=== PATIENT | female | born 1940 | race Caucasian/White ===

== ENCOUNTER 2017-10-22 17:17 | Emergency (ER) | payer OTHER ==
[2017-10-22 18:25] LABS: Absolute Lymphocytes (CBC) 1.5 K/uL (0.7-4.9); Absolute Monocytes 0.4 K/uL (0.1-1.3); Absolute Neutrophil 4.3 K/uL (1.8-8.0); Basophils % 0.6 % (0-1.3); Eosinophils % 0.7 % (0-4.4); Hematocrit 31.5 % (36.0-45.0); Lymphocytes % 23.5 % (15.3-44.8); MCH 28.6 pg (27.0-35.0); MCV 86.5 fL (80-100); MPV 7.1 fL (7.6-11.3); Monocytes % 7.1 % (3.3-12.3); RBC Red Blood Cell Count 3.64 M/uL (3.86-4.86)
--- NOTE | 2017-10-22 18:27 | RAD REPORT ---
EXAM DESCRIPTION: CT - Head C Spine Mpr Wo Con - 10/22/2017 6:06 pm CLINICAL HISTORY: Head and neck injury status post fall. Head and neck pain COMPARISON: None. TECHNIQUE: Computed axial tomography of the head and cervical spine was obtained. Sagittal and coronal reconstruction was performed. All CT scans are performed using dose optimization technique as appropriate and may include automated exposure control or mA/KV adjustment according to patient size. FINDINGS: An intracranial bleed is not seen. An extra-axial fluid collection is not noted. Moderate low-density areas within periventricular, deep and subcortical white matter likely represent ischemic changes secondary to small vessel disease. Cerebral atrophy is present. Partial opacification ethmoid sinus is present A cervical fracture is not visualized. No dislocation is noted. Disc osteophyte complex is involved s everal levels resulting in central spinal stenosis. Mild anterior subluxation of C3 on C4 probably is chronic IMPRESSION: No acute intracranial abnormality is seen. A cervical fracture is not visualized. If the patient continues to have symptoms to suggest intracra nial /spinal cord pathology then MRI would be recommended
[2017-10-22 18:36] LABS: BUN Blood Urea Nitrogen 17 mg/dL (6-20); Bicarbonate 31 mEq/L (21-31); Glucose Level 96 mg/dL (65-120); Sodium Level 138 mEq/L (135-145)
--- NOTE | 2017-10-22 19:06 | ER ---
Nurse's Notes [facility] Name: Maggie Durant Age: 77 yrs Sex: Female : 1940 Arrival Date: 10/22/2017 Time: 17:22 Bed 26 Private MD: Diagnosis: Other slipping, tripping and stumbling and falls Presentation: 10/22 17:28 Presenting complaint: EMS states: pt slipped twice today, once out of her chair and tl3 secondly against a wall, severe dementia, no abrasions or lacerations noted. Transition of care: patient was received from another setting of care (long-term care [facility]), [facility]. Onset of symptoms was October 22, 2017. Care prior to arrival: None. 17:28 Method Of Arrival: EMS: [facility] tl3 17:28 Acuity: LUIS ALBERTO 4 tl3 17:28 Acuity: LUIS ALBERTO 3 tl3 Triage Assessment: 17:28 General: Appears comfortable, slender, well groomed, well developed, well nourished, tl3 Behavior is cooperative. Pain: Unable to use pain scale. Patient is disoriented. Does not appear to understand pain scale. EENT: No signs and/or symptoms were reported regarding the EENT system. Neuro: Level of Consciousness is awake, alert. Cardiovascular: Heart tones S1 S2 present. Respiratory: Airway is patent Trachea midline Respiratory effort is even, unlabored, Breath sounds are clear bilaterally. GI: No signs and/or symptoms were reported involving the gastrointestinal system. : No signs and/or symptoms were reported regarding the genitourinary system. Derm: No deficits noted. Musculoskeletal: No deficits noted. Historical: - Home Meds: 18:05 tramadol 50 mg Oral tab every 8 hours [Active]; Ativan 1 mg Oral tab 1 tab 3 times per tl3 day for Anxiety [Active]; ducusate 100mg 100 mg daily [Active]; Iron CR Oral [Active]; omeprazole 20 mg Oral cpDR 1 cap once daily [Active]; - PMHx: 18:05 Alzheimers; tl3 - Immunization history:: Adult Immunizations up to date. - Social history:: Smoking status: Patient/guardian denies using tobacco, never smoked. Screenin:05 Abuse screen: Denies threats or abuse. Nutritional screening: No deficits noted. tl3 Tuberculosis screening: No symptoms or risk factors identified. Fall Risk Fall in past 12 months (25 points). Assessment: 18:01 Reassessment: No changes from previously documented assessment. Patient and/or family tl3 updated on plan of care and expected duration. Pain level reassessed. Patient is alert, oriented x 3, equal unlabored respirations, skin warm/dry/pink. General: Appears in no apparent distress. comfortable, well groomed, well developed, well nourished, Behavior is calm, cooperative. Pain: Unable to use pain scale. Does not appear to understand pain scale. Neuro: Level of Consciousness is awake, alert, obeys commands. Cardiovascular: Heart tones S1 S2 present Capillary refill < 3 seconds in bilateral fingers. Respiratory: Breath sounds are clear bilaterally. GI: No signs and/or symptoms were reported involving the gastrointestinal system. : No signs and/or symptoms were reported regarding the genitourinary system. EENT: No signs and/or symptoms were reported regarding the EENT system. Derm: No signs and/or symptoms reported regarding the dermatologic system. Musculoskeletal: No signs and/or symptoms reported regarding the musculoskeletal system. 18:16 Reassessment: Patient appears in no apparent distress at this time. No changes from tl3 previously documented assessment. Patient and/or family updated on plan of care and expected duration. Pain level reassessed. Patient is alert, oriented x 3, equal unlabored respirations, skin warm/dry/pink. pt returned from CT. 19:25 Reassessment: [place] [facility] that pt required transportation, [facility] spoke with Ruth who said she would call as soon as transportation was available. 20:12 Reassessment: states that he will take pt back [place] [facility]. Ruth at [address] called and informed of change in transportation. Vital Signs: 17:28 BP 129 / 88; Pulse 66; Resp 16; Temp 97.7(A); Pulse Ox 100% on R/A; tl3 18:21 BP 140 / 61; Pulse 81; Resp 18; Pulse Ox 97% on R/A; tl3 19:02 BP 147 / 78; Pulse 64; Resp 18; Pulse Ox 98% on R/A; tl3 ED Course: 17:22 Patient arrived in ED. iw 17:28 Shanika Salcedo, RN is Primary Nurse. tl3 17:30 Triage completed. tl3 17:30 Bentley Cedillo PA is PHCP. cp 17:30 Bentley Rhodes MD is Attending Physician. cp 17:[address] via stretcher. jg1 18:05 Patient has correct armband on for positive identification. Bed in low position. Call tl3 light in reach. Side rails up X2. Adult w/ patient. Warm blanket given. 18:05 No provider procedures requiring assistance completed. tl3 18:07 CT Head C Spine In Process Unspecified. EDMS 18:10 CT completed. Patient moved back from [place]. vm2 18:14 EKG done, by audiovisual technician. reviewed by Bentley BRANDON. at1 18:21 Initial lab(s) drawn, by oh, sent to lab. Inserted saline lock: 22 gauge in right dh3 forearm, using aseptic technique. Blood collected. 19:34 IV discontinued, intact, bleeding controlled, No redness/swelling at site. Pressure tl3 dressing applied. 20:14 Arm band placed on left wrist. tl3 Administered Medications: No medications were administered Outcome: 19:05 Discharge ordered by MD. cp 20:12 Discharged to home ambulatory. tl3 20:12 Condition: good 20:12 Discharge instructions given to family, Instructed on discharge instructions. 20:14 Patient left the ED. tl3 Signatures: Dispatcher [employer] EDMS Ellie Pantoja j Katelyn Cooper, RN RN Janiya shi, employment supervisor EKG Tat1 Bentley Cedillo PA PA cp McGuire, Victoria 2 Rupa Oquendo 3 Shanika Salcedo RN RN tl3
--- NOTE | 2017-10-22 19:06 | EDPHYS ---
Physician Documentation [facility] Name: Maggie Durant Age: 77 yrs Sex: Female : 1940 Arrival Date: 10/22/2017 Time: 17:22 Bed 26 Private MD: ED Physician Bentley Rhodes HPI: 10/22 17:48 This 77 yrs old Female presents to ER via EMS with complaints of fall. cp 17:48 Details of fall: The patient fell from an upright position, while walking, from seated cp position, out of a chair. Onset: The symptoms/episode began/occurred today. Associated injuries: The patient sustained no obvious injury. Unable to obtain HPI due to baseline dementia. Patient with baseline dementia. 17:48 Patient is resident of [facility] and is referred to ED after sustaining multiple fall cp today. One fall while seated in chair and another while walking near wall in which patient struck side of head on way to ground. No reported LOC. Historical: - Home Meds: 18:05 tramadol 50 mg Oral tab every 8 hours [Active]; Ativan 1 mg Oral tab 1 tab 3 times per tl3 day for Anxiety [Active]; ducusate 100mg 100 mg daily [Active]; Iron CR Oral [Active]; omeprazole 20 mg Oral cpDR 1 cap once daily [Active]; - PMHx: 18:05 Alzheimers; tl3 - Immunization history:: Adult Immunizations up to date. - Social history:: Smoking status: Patient/guardian denies using tobacco, never smoked. ROS: 17:55 Constitutional: Negative for fever. cp 17:55 Unable to obtain ROS due to baseline dementia. cp Exam: 17:58 Head/Face: Normocephalic, atraumatic. cp 17:58 Constitutional: The patient appears in no acute distress, alert, awake, non-diaphoretic, non-toxic, well developed, frail. 17:58 Eyes: Periorbital structures: appear normal, Pupils: equal, round, and reactive to cp light and accomodation, Conjunctiva: normal, no exudate, no injection, Sclera: no appreciated abnormality, Lids and lashes: appear normal, bilaterally. 17:58 ENT: External ear(s): are unremarkable, Ear canal(s): are normal, clear, TM's: bulging, is not appreciated, bilaterally, dullness, bilaterally, erythema, is not appreciated, bilaterally, Nose: is normal, Mouth: Lips: moist, Oral mucosa: moist, Posterior pharynx: is normal, airway is patent. 17:58 Neck: C-spine: vertebral tenderness, is not appreciated, crepitus, is not appreciated, ROM/movement: is normal, is supple, without pain, no range of motions limitations, no nuchal rigidity. 17:58 Chest/axilla: Inspection: normal, Palpation: is normal, no crepitus, no tenderness. 17:58 Cardiovascular: Rate: normal, Rhythm: regular, Pulses: Pulses are 2+ in right radial artery and left radial artery. 17:58 Respiratory: the patient does not display signs of respiratory distress, Respirations: normal, no use of accessory muscles, no retractions, no splinting, no tachypnea, labored breathing, is not present, Breath sounds: are clear throughout, no decreased breath sounds, no stridor, no wheezing. 17:58 Abdomen/GI: Inspection: abdomen appears normal, Bowel sounds: active, all quadrants, Palpation: abdomen is soft and non-tender, in all quadrants, rebound tenderness, is not appreciated, voluntary guarding, is not appreciated, involuntary guarding, is not appreciated. 17:58 Back: CVA tenderness, is absent, vertebral tenderness, is not appreciated. 17:58 Skin: cellulitis, is not appreciated, injury, is not appreciated, no rash present. 17:58 Neuro: Orientation: no acute changes, per family, Mentation: no acute changes, per family, able to follow commands, Motor: moves all fours. 18:00 ECG was reviewed by the Attending Physician. cp Vital Signs: 17:28 BP 129 / 88; Pulse 66; Resp 16; Temp 97.7(A); Pulse Ox 100% on R/A; tl3 18:21 BP 140 / 61; Pulse 81; Resp 18; Pulse Ox 97% on R/A; tl3 19:02 BP 147 / 78; Pulse 64; Resp 18; Pulse Ox 98% on R/A; tl3 MDM: 17:30 Patient medically screened. cp 18:00 Differential diagnosis: abrasion, closed head injury, contusion, fracture, laceration, cp multiple trauma, abuse. 19:00 Data reviewed: vital signs, nurses notes, lab test result(s), radiologic studies, CT cp scan, VSS. CT negative for acute findings, and as a result, I will discharge patient. 10/22 17:44 Order name: CBC with Diff; Complete Time: 18:51 10/22 18:51 Interpretation: Normal except: RBC 3.64; HGB 10.4; HCT 31.5; MCV 86.5; PLT 460; MPV 7.1. 10/22 17:44 Order name: BMP; Complete Time: 18:51 10/22 18:52 Interpretation: Reviewed. 10/22 17:44 Order name: CT Head C Spine; Complete Time: 18:51 10/22 18:51 Interpretation: Reviewed report. 10/22 17:44 Order name: EKG; Complete Time: 17:45 10/22 17:44 Order name: EKG - Nurse/Tech; Complete Time: 18:01 cp EC:00 Rate is 70 beats/min. Rhythm is regular. ME interval is normal. QRS interval is cp prolonged at 128 msec. QT interval is normal. No ST changes noted. Interpreted by me. Reviewed by me. Administered Medications: No medications were administered Disposition: 21:00 Chart complete. 10/23 07:39 Co-signature as Attending Physician, Bentley Rhodes MD I agree with the assessment and [facility] plan of care. Disposition: 10/22/17 19:05 Discharged to Home. Impression: Other slipping, tripping and stumbling and falls. - Condition is Stable. - Discharge Instructions: Fall Prevention and Home Safety. - Medication Reconciliation Form, Thank You Letter, Antibiotic Education, Prescription Opioid Use form. - Follow up: Emergency Department; When: As needed; Reason: Worsening of condition. - Problem is new. - Symptoms are unchanged. Addendum: 11/03/2017 08:33 Addendum: additional DX: Person with feared health complaint in whom no diagnosis is c p made. Signatures: Dispatcher [employer] Bentley Mendoza MD MD cha Page, Corey, PA PA cp Lowrey, Tammy, RN RN tl3
[2017-10-22 20:20] VITALS: TEMP 97.7
[2017-10-22 20:22] VITALS: BP 147/78; O2SAT 98
--- NOTE | 2017-10-23 10:09 | EKG ---
Test Date: 2017-10-22 Test Time: 17:53:06 Labor Relations Consultant: CON MEASUREMENT RESULTS: Intervals: Rate: 70 MT: 158 QRSD: 128 QT: 426 QTc: 460 [place]: P: 66 MT: 158 QRS: -72 T: 23 INTERPRETIVE STATEMENTS: Sinus rhythm with marked sinus arrhythmia Right bundle branch block Left anterior fascicular block Bifascicular block Abnormal ECG Compared to ECG 04/19/2015 08:12:39 Left anterior fascicular block now present Bifascicular block now present Atrial premature complex(es) no longer present Left-axis deviation no longer present Electronically Signed On 10-23-17 10:07:50 CDT by Jere Peralta
== END 2017-10-22 20:14 | disposition home or self-care (01) ==
LOC: ER 17:17
DX: Z71.1 Person with feared health complaint in whom no diagnosis is made (principal); W01.0XXA Fall on same level from slipping, tripping and stumbling without subsequent striking against object, initial encounter; Y93.01 Activity, walking, marching and hiking; Y92.129 Unspecified place in nursing home as the place of occurrence of the external cause; G30.9 Alzheimer's disease, unspecified; F02.80 Dementia in other diseases classified elsewhere, unspecified severity, without behavioral disturbance, psychotic disturbance, mood disturbance, and anxiety
CPT/HCPCS: 36415; 70450; 72125; 80048; 85025; 93005; 99284

== ENCOUNTER 2017-12-25 16:33 | Emergency (ER) | payer OTHER ==
--- NOTE | 2017-12-25 17:49 | RAD REPORT ---
EXAM DESCRIPTION: RAD - Wrist Right 3 View - 12/25/2017 5:41 pm CLINICAL HISTORY: Right wrist pain status post injury FINDINGS: No fracture or dislocation is seen. The bones are osteoporotic. Chondrocalcinosis is seen. If the patient continues have symptoms to suggest an occult fracture then MRI would be recommended
[2017-12-25 18:10] LABS: Absolute Lymphocytes (CBC) 1.6 K/uL (0.7-4.9); Absolute Monocytes 0.7 K/uL (0.1-1.3); Absolute Neutrophil 3.9 K/uL (1.8-8.0); Basophils % 0.7 % (0-1.3); Eosinophils % 0.3 % (0-4.4); Hematocrit 34.6 % (36.0-45.0); Lymphocytes % 25.2 % (15.3-44.8); MCH 27.2 pg (27.0-35.0); MCV 84.4 fL (80-100); MPV 7.4 fL (7.6-11.3); Monocytes % 11.6 % (3.3-12.3)
[2017-12-25 18:34] LABS: Bicarbonate 24 mEq/L (21-31); Glucose Level 139 mg/dL (65-120); Potassium 3.7 mEq/L (3.6-5.0); Sodium Level 135 mEq/L (135-145)
[2017-12-25 18:38] LABS: BUN Blood Urea Nitrogen 10 mg/dL (6-20); Uric Acid 2.9 mg/dL (2.6-8.0)
--- NOTE | 2017-12-25 18:48 | EDPHYS ---
Physician Documentation [facility] Name: Maggie Durant Age: 77 yrs Sex: Female : 1940 Arrival Date: 12/25/2017 Time: 16:38 Bed 5 Private MD: MADDIE LARSEN ED Physician Victor Hugo Stubbs HPI: 12/25 18:08 This 77 yrs old Female presents to ER via Ambulatory with complaints of Hand gs Swelling, Ankle Swelling. 18:08 The patient or guardian reports pain, a rash, erythematous. The complaints affect the. gs Onset: The symptoms/episode began/occurred yesterday. Modifying factors: The symptoms are alleviated by nothing, the symptoms are aggravated by nothing. Associated signs and symptoms: Pertinent negatives: fever, nausea. Unable to obtain HPI due to baseline dementia. Historical: - Allergies: 16:48 No Known Allergies; ch - Home Meds: 16:48 None [Active]; ch - PMHx: 16:48 Alzheimers; possible hyperglycemia; ch - PSHx: 16:48 Hysterectomy; disc repair in lower back; L hip and L ankle; ch - Immunization history:: Adult Immunizations unknown. - Social history:: Smoking status: Patient/guardian denies using tobacco. - Ebola Screening: : Patient negative for fever greater than or equal to 101.5 degrees Fahrenheit, and additional compatible Ebola Virus Disease symptoms Patient denies exposure to infectious person Patient denies travel to an Ebola-affected area in the 21 days before illness onset No symptoms or risks identified at this time. ROS: 18:08 Unable to obtain ROS due to baseline dementia. gs Exam: 18:08 Head/Face: Normocephalic, atraumatic. Eyes: Pupils equal round and reactive to light, gs extra-ocular motions intact. Lids and lashes normal. Conjunctiva and sclera are non-icteric and not injected. Cornea within normal limits. Periorbital areas with no swelling, redness, or edema. ENT: Nares patent. No nasal discharge, no septal abnormalities noted. Tympanic membranes are normal and external auditory canals are clear. Oropharynx with no redness, swelling, or masses, exudates, or evidence of obstruction, uvula midline. Mucous membranes moist. Neck: Trachea midline, no thyromegaly or masses palpated, and no cervical lymphadenopathy. Supple, full range of motion without nuchal rigidity, or vertebral point tenderness. No Meningismus. Chest/axilla: Normal chest wall appearance and motion. Nontender with no deformity. No lesions are appreciated. Cardiovascular: Regular rate and rhythm with a normal S1 and S2. No gallops, murmurs, or rubs. Normal PMI, no JVD. No pulse deficits. Respiratory: Lungs have equal breath sounds bilaterally, clear to auscultation and percussion. No rales, rhonchi or wheezes noted. No increased work of breathing, no retractions or nasal flaring. Abdomen/GI: Soft, non-tender, with normal bowel sounds. No distension or tympany. No guarding or rebound. No evidence of tenderness throughout. Back: No spinal tenderness. No costovertebral tenderness. Full range of motion. Neuro: Awake and alert, GCS 15, oriented to person, place, time, and situation. Cranial nerves II-XII grossly intact. Motor strength 5/5 in all extremities. Sensory grossly intact. Cerebellar exam normal. Normal gait. 18:08 Constitutional: The patient appears alert, awake. 18:08 Musculoskeletal/extremity: ROM: limited passive range of motion due to pain, Circulation is intact in all extremities. Pulses: are normal with no appreciated deficits, Sensation intact. Joints: the right wrist displays no effusion, mild tender.. 18:08 Skin: cellulitis, that is mild, on the right wrist. Vital Signs: 16:48 BP 152 / 84; Pulse 76; Resp 14; Temp 99.9; Pulse Ox 98% on R/A; Weight 46.27 kg; Height ch 5 ft. 7 in. (170.18 cm); Pain 0/10; 18:30 BP 142 / 77; Pulse 72; Resp 14; Temp 99.; Pulse Ox 99% on R/A; Pain 0/10; sg 16:48 Body Mass Index 15.98 (46.27 kg, 170.18 cm) MDM: 17:19 Patient medically screened. 18:47 Differential diagnosis: tendonitis, cellulitis. Data reviewed: vital signs, nurses gs notes, and as a result, I will discharge patient. 12/25 17:21 Order name: CBC with Diff; Complete Time: 18:27 12/25 17:21 Order name: Basic Metabolic Panel; Complete Time: 18:46 12/25 17:21 Order name: Wrist Right 3 View XRAY; Complete Time: 17:52 12/25 17:21 Order name: Uric Acid; Complete Time: 18:46 Administered Medications: No medications were administered Disposition: 12/25/17 18:47 Discharged to Home. Impression: Cellulitis of right upper limb. - Condition is Stable. - Discharge Instructions: Cellulitis. - Prescriptions for Keflex 500 mg Oral Capsule - take 1 capsule by ORAL route every 6 hours for 10 days; 40 capsule. - Medication Reconciliation Form, Thank You Letter, Antibiotic Education, Prescription Opioid Use form. - Follow up: Private Physician; When: 2 - 3 days; Reason: Re-evaluation by your physician. Signatures: Dispatcher [employer] EDKiesha Ely RN RN Steffen Almaraz RN RN Victor Hugo Ochoa MD MD gs Corrections: (The following items were deleted from the chart) 19:08 18:47 12/25/2017 18:47 Discharged to Home. Impression: Cellulitis of right upper limb. ao Condition is Stable. Forms are Medication Reconciliation Form, Thank You Letter, Antibiotic Education, Prescription Opioid Use. Follow up: Private Physician; When: 2 - 3 days; Reason: Re-evaluation by your physician.
--- NOTE | 2017-12-25 18:48 | ER ---
Nurse's Notes [facility] Name: Maggie Durant Age: 77 yrs Sex: Female : 1940 Arrival Date: 12/25/2017 Time: 16:38 Bed 5 Private MD: MADDIE LARSEN Diagnosis: Cellulitis of right upper limb Presentation: 12/25 16:45 Presenting complaint: states: pt fell september, had her L hip and L ankle ch removed. the past week her feet have been swelling, and today her R wrist is swollen. Transition of care: patient was not received from another setting of care. Onset of symptoms was December 25, 2017. Risk Assessment: Do you want to hurt yourself or someone else? Other: pt has dementia and cannot understand question. Initial Sepsis Screen: Does the patient meet any 2 criteria? No. Patient's initial sepsis screen is negative. Does the patient have a suspected source of infection? No. Patient's initial sepsis screen is negative. Care prior to arrival: None. 16:45 Method Of Arrival: Ambulatory 16:45 Acuity: LUIS ALBERTO 3 ch Triage Assessment: 16:48 General: Appears in no apparent distress. uncomfortable, Behavior is calm, cooperative, ch appropriate for age. Pain: Unable to use pain scale. Does not appear to understand pain scale. Historical: - Allergies: 16:48 No Known Allergies; ch - Home Meds: 16:48 None [Active]; ch - PMHx: 16:48 Alzheimers; possible hyperglycemia; ch - PSHx: 16:48 Hysterectomy; disc repair in lower back; L hip and L ankle; ch - Immunization history:: Adult Immunizations unknown. - Social history:: Smoking status: Patient/guardian denies using tobacco. - Ebola Screening: : Patient negative for fever greater than or equal to 101.5 degrees Fahrenheit, and additional compatible Ebola Virus Disease symptoms Patient denies exposure to infectious person Patient denies travel to an Ebola-affected area in the 21 days before illness onset No symptoms or risks identified at this time. Screenin:10 Abuse screen: Denies threats or abuse. Denies injuries from another. Nutritional sg screening: No deficits noted. Tuberculosis screening: No symptoms or risk factors identified. Never had TB. Fall Risk None identified. Assessment: 17:10 General: Appears in no apparent distress. comfortable, well groomed, well developed, sg well nourished, Behavior is calm, cooperative, appropriate for age. Pain: Complains of pain in right wrist Pain does not radiate. Neuro: Level of Consciousness is awake, alert, obeys commands, Oriented to person, place, time, situation, Slitter Processed Film are equal bilaterally Moves all extremities. Gait is steady, Speech is normal, Facial symmetry appears normal. Cardiovascular: Heart tones S1 S2 present Capillary refill is brisk in bilateral fingers Patient's skin is warm and dry. Chest pain is denied. Respiratory: Airway is patent Respiratory effort is even, unlabored, Respiratory pattern is regular, symmetrical, Breath sounds are clear. GI: No deficits noted. : No deficits noted. EENT: No deficits noted. Derm: Skin is pink, warm \T\ dry. Musculoskeletal: Circulation, motion, and sensation intact. Range of motion: intact in all extremities. Vital Signs: 16:48 BP 152 / 84; Pulse 76; Resp 14; Temp 99.9; Pulse Ox 98% on R/A; Weight 46.27 kg; Height ch 5 ft. 7 in. (170.18 cm); Pain 0/10; 18:30 BP 142 / 77; Pulse 72; Resp 14; Temp 99.; Pulse Ox 99% on R/A; Pain 0/10; sg 16:48 Body Mass Index 15.98 (46.27 kg, 170.18 cm) ED Course: 16:38 Patient arrived in ED. sb2 16:39 MADDIE LARSEN is Private Physician. sb2 16:46 Triage completed. 16:48 Arm band placed on left wrist. Patient placed in an exam room, on a stretcher. 16:51 Victor Hugo Stubbs MD is Attending Physician. 17:00 Patient did not have IV access during this emergency room visit. sg 17:01 Ricardo Kruger, RN is Primary Nurse. sg 17:10 No provider procedures requiring assistance completed. sg 17:37 X-ray completed. Portable x-ray completed in exam room. Patient tolerated procedure ml well. 17:38 Wrist Right 3 View XRAY In Process Unspecified. EDMS 18:10 Initial lab(s) drawn, by sleep lab technician, sent to lab. sg 19:00 Patient has correct armband on for positive identification. Bed in low position. Call sg light in reach. Side rails up X2. Pulse ox on. NIBP on. Cleaned of incontinence. Administered Medications: No medications were administered Outcome: 18:47 Discharge ordered by . marty 19:00 Discharged to home ambulatory, with family. ao 19:00 Condition: good 19:00 Discharge instructions given to patient, Instructed on discharge instructions, follow up and referral plans. medication usage, safety practices, Demonstrated understanding of instructions, follow-up care, medications, Prescriptions given X 1. 19:08 Patient left the ED. ao Signatures: Dispatcher [employer] EDKiesha Ely, RN Ricardo Bourne ch, RN RN sg Lopez, Melissa ml Ortiz, Alex, RN RN ao Starr, Gregory, MD MD gs Billeau, Sheri sb2
== END 2017-12-25 19:08 | disposition home or self-care (01) ==
LOC: ER 16:33
DX: L03.113 Cellulitis of right upper limb (principal); G30.9 Alzheimer's disease, unspecified; F02.80 Dementia in other diseases classified elsewhere, unspecified severity, without behavioral disturbance, psychotic disturbance, mood disturbance, and anxiety
CPT/HCPCS: 36415; 80048; 84550; 85025; 99284

== ENCOUNTER 2020-07-26 13:58 | Inpatient (IN) | payer OTHER ==
--- OUTSIDE RECORDS SUMMARY | 2020-07-26 14:00 | XMS REPORT | Continuity of Care Document ---
:1940 Author Organization [facility] t Address [address] [place] [id number] Care Team Providers Name Role Phone Unavailable Unavailable Unavailable Problems Condition Condition Condition Status Onset Resolution Last Treating Co mments Source Name Details Category Date Date Treatment Clinician Date Pain of Pain of Problem Active [facility] hand [facility] Prediabete Prediabete Problem Active [facility] Pain in Pain in Problem Active [facility] right hand right hand Jesusita kes - [facility] Trigger Trigger Problem Active [facility] finger of finger of Luke s - both hands both hands Me [facility]ia l [facility] Alzheimer Alzheimer Problem Active [facility] disease disease [facility]ics Hyperchole Hyperchole Problem Active [facility] sterolemia sterolemia Jesusita [facility] Vitamin D Vitamin D Problem Active [facility] deficiency deficiency Jesusita kes [facility] Atrial Atrial Problem Active [facility] fibrillati fibrillati Jesusita kes - on on [facility] Depression Depression Problem Active [facility] screening screening [facility] Medicare Medicare Diagnosis Active [facility] annual annual [facility] visit, visit, l subsequent subsequent [facility] Allergies, Adverse Reactions, Alerts This patient has no known allergies or adverse reactions. Medications Ordered Filled Start Stop Current Ordering Indication Dosage Frequency Signature Comments Components Source Medication Medication Date Date Medication? Clinician (SIG) Name Name Robbinalonso Robbinalonso Yes Nena [facility] [address] [facility] Vitamin D3 Vitamin D3 Yes Nena [address] [facility] Millender [facility] Namenda XR Namenda XR Yes Nena [address] [facility] Millender [facility] Nexium Nexium Yes Nena 1 capsule [facility] Sucralfate Sucralfate Yes Nena [address] [facility] Millender at bedtime Luke s - on an Memoria empty l stomach Outpati before ent meals Clinics Bentyl Bentyl Yes Nena [address] [facility] Millender [facility] Donepezil Donepezil Yes Nena [address] [facility] HCl HCl Millender at bedtime [facility] Procedures This patient has no known procedures. Encounters Start End Encounter Admission Attending Care Care Encounter Source Date/Time Date/Time Type Type Clinicians Facility Department ID 2019-03-09 2019-03-09 Outpatient Charles Craft [id number] [facility] 14:15:00 14:15:00 [facility] Outpat[facility] ent Clinics 2018-11-12 2018-11-12 Outpatient Charles Craft [id number] 14:40:00 14:40:00 [facility] Out[facility] Clinics Results This patient has no known results.
[2020-07-26 14:45] LABS: Absolute Lymphocytes (CBC) 0.9 K/uL (0.7-4.9); Basophils % 0.6 % (0-1.3); Hematocrit 38.8 % (36.0-45.0); Lymphocytes % 16.6 % (15.3-44.8); MPV 10.3 fL (7.6-11.3)
[2020-07-26 14:46] LABS: Protime INR 1.28
[2020-07-26] MEDS ORDERED: NA CHLORIDE 0.9% 500 ML ONE (15:05)
[2020-07-26 15:11] LABS: Albumin 3.5 g/dL (3.4-5.0); Bilirubin Direct 0.2 mg/dL (0-0.2); Bilirubin Total 0.7 mg/dL (0.2-1.0); Magnesium 2.6 mg/dL (1.8-2.4); Potassium 3.8 mmol/L (3.5-5.1); Protein, Total 7.4 g/dL (6.4-8.2); Troponin (Emerg Dept Use Only) 0.1 ng/mL (0.0-0.045)
--- NOTE | 2020-07-26 15:28 | RAD REPORT ---
EXAM DESCRIPTION: CT - CTHCSPWOC - 07/26/2020 3:15 pm CLINICAL HISTORY: Trauma, head and neck injury. fall, AMS COMPARISON: Head C Spine Mpr Wo Con dated 10/22/2017 TECHNIQUE: Axial 5 mm thick images of the head were obtained. Axial 2 mm thick images of the cervical spine were obtained with sagittal and coronal reconstruction images generated and reviewed. All CT scans are performed using dose optimization technique as appropriate and may include automated exposure control or mA/KV adjustment according to patient size. FINDINGS: CT HEAD WITHOUT CONTRAST: No acute hemorrhage, hydrocephalus or extra-axial collection is identified.Advanced generalized brain atrophy is present with advanced periventricular and deep white matter chronic microvascular ischemi c changes.No areas of brain edema or midline shift. The paranasal sinuses and mastoids are clear.The calvarium is intact. CT CERVICAL SPINE WITHOUT CONTRAST: No fracture or subluxation.Prominent multilevel spondylosis of the cervical spine is present with mul tiple calcified disc herniation seen, largest noted at C3-4.No prevertebral soft tissues swelling is identified. IMPRESSION: No acute intracranial or cervical spine findings. Moderately severe multilevel cervical degenerative spondylosis.
[2020-07-26 15:32] LABS: Urine Bacteria LOADED /HPF (<20); Urine RBC <5 /HPF (NONE SEEN)
--- NOTE | 2020-07-26 16:07 | RAD REPORT ---
EXAM DESCRIPTION: RAD - Chest Single View - 07/26/2020 3:45 pm CLINICAL HISTORY: AMS Chest pain. COMPARISON: CHEST SINGLE VIEW dated 11/01/2014; CHEST PA AND LAT 2 VIEW dated 02/24/2012; CHEST SINGLE VIEW dated 08/26/2010; CHEST SINGLE VIEW dated 08/25/2010 FINDINGS: Portable technique limits examination quality. The lungs are grossly clear. The heart is normal in size. No displaced fractures. IMPRESSION: No acute intrathoracic process suspected.
--- NOTE | 2020-07-26 16:13 | RAD REPORT ---
EXAM DESCRIPTION: RAD - Pelvis - 07/26/2020 3:45 pm CLINICAL HISTORY: fall Fall, pain COMPARISON: Hip Bilateral With Pelvis dated 09/08/2017 FINDINGS: Diffuse osteopenia is seen. Left total hip arthroplasty is present. No acute fracture is e vident. Moderate levoscoliosis of the lower lumbar spine.
[2020-07-26] MEDS ORDERED: ASPIRIN 600 MG/SUPP PR ONE (16:28)
[2020-07-26] MEDS ORDERED: ENOXAPARIN 40 MG/0.4 ML SQ ONE (16:29)
[2020-07-26] MEDS ORDERED: NACHLORIDE 0.45% 1,000 ML IV ONE (16:29)
[2020-07-26] MEDS ORDERED: CEFTRIAXONE/SWI 1gm 1 GM/10 ML SYR ONE (16:29)
--- NOTE | 2020-07-26 16:39 | P.HP ---
Certification for Inpatient Patient admitted to: Inpatient With expected LOS: >2 Midnights Practitioner: I am a practitioner with admitting privileges, knowledge of patient current condition, hospital course, and medical plan of care. Services: Services provided to patient in accordance with Admission requirements found in Title 42 Section 412.3 of the Code of Federal Regulations Patient History Date of Service: 07/26/20 Reason for admission: hypernatremia, AMS History of Present Illness: 79yo F, PMH: Alzheimer dementia who was brought to the ED due to altered mental status/lethargy/slurring of speech. is at bedside. He states that approximately 1 week ago patient fell at home, and fell again 3 days ago hitting her head on their dresser. He states he spoke with the their neurologist recommended going to the ER. Has been delayed this. Patient has been more sleepy the last 3 days, sleeping most of day, but waking for meals and to use the bathroom. He reports good appetite, but poor hydration - which is chronic for her. She is typically confused/demented, most times not even oriented to self. In the ED, CT head: negative, CBC unremarkable, hypernatremia (170), hyperchloremia (140),, creatinine at 1.1, glucose 240, negative pro calcitonin, and UA (catheterization) with loaded with bacteria reports patient does not take any medications at home. Allergies No Known Drug Allergies Allergy (Verified 09/08/17 08:52) Unknown No Known Allergies Allergy (Uncoded 12/25/17 19:12) Unknown Home Medications: Docusate [Colace Cap*] 200 mg PO DAILY PRN #30 cap 09/11/17 Enoxaparin Sodium [Lovenox 40 MG INJ*] 40 mg SQ DAILY 5 PM #30 syr 09/11/17 Ensure Enlive 237 ml PO BID #60 can 09/11/17 Iron/FA/Vit B-Com W/C [Hemocyte Plus*] 1 tab PO DAILY WITH BREAKFAST #30 tab 09/11/17 Pantoprazole [Protonix Tab*] 40 mg PO DAILY #30 tab 09/11/17 Tramadol HCl [Ultram] 50 mg PO BID PRN #20 tablet 09/11/17 - Past Medical/Surgical History Diabetic: No -: alzheimers -: GERD -: UTI -: hysterectomy -: back surgery -: nodule removal from back - Family History Father -: Diabetes, Kidney disease Mother Notes: dementia Brother -: Diabetes, Cancer Notes: alzheimers Sister -: Stroke - Social History Smoking Status: Never smoker Alcohol use: No CD- Drugs: No Caffeine use: Yes Review of Systems is unable to be obtained Physical Examination - Physical Exam General: Demented, Delirious HEENT: Sclerae nonicteric Respiratory: Clear to auscultation bilaterally Cardiovascular: No edema, Regular rate/rhythm Gastrointestinal: Soft and benign, No tenderness Integumentary: No significant lesion Neurological: Other (minimally responsive, opens eyes to loud voice, does not follow commands. She was more agitated earlier), Dementia Urinary: Keys catheter - Studies Laboratory Data (last 24 hrs) 07/26/20 14:25: PT 15.0 H, INR 1.28 07/26/20 14:25: WBC 5.6, Hgb 12.3, Hct 38.8, Plt Count 306 07/26/20 14:25: Sodium 170 H*, Potassium 3.8, BUN 53 H, Creatinine 1.10, Glucose 249 H, Magnesium 2.6 H, Total Bilirubin 0.7, AST 20, ALT 37, Alkaline Phosphatase 195 H Assessment and Plan - Advance Directives Does patient have a Living Will: No Does patient have a Durable POA for Healthcare: No Physician Review Additional Text: AMS Fall Hypernatremia, hyperchloremia UTI Alzheimer dementia AMS/Fall possibly due to UTI vs hypernatremia CT head / c-spine negative. CXR negative, hip x-ray negative UA grossly positive for UTI, start Rocephin, f/u urine culture, pt does not appear septic, vitals ok, afebrile, no leukocytosis Nephrology consulted - advised 1/2 NS @ 100ml/hr, repeat BMP tonight, and adjust from there hypernatremia likely due to hypovolemia troponin elevated, however reports no CAD disease, and denies patient ever complaining of chest pain, possibly due to hyovolemia, will obtain echo. briefly reviewed with cardiology, pt is DNR and given comorbidities would not be a good candidate for intervention if she was having OH, continue lovenox VTE prophylaxis doubtful patient can remain still at this time for MRI VTE: lovenox Dispo: hospitalization >2 days, anticipate dc home Time Spent Managing Pts Care (In Minutes): 60
[2020-07-26] MEDS ORDERED: LORazepam 2 MG/ML VIAL ONE (17:20)
--- NOTE | 2020-07-26 17:24 | EDPHYS ---
Physician Documentation [facility] Name: Maggie Durant Age: 79 yrs Sex: Female : 1940 Arrival Date: 07/26/2020 Time: 14:02 Bed 26 Private MD: ED Physician Melo Martinez HPI: 07/26 14:13 This 79 yrs old Female presents to ER via EMS with complaints of Altered cp Mental Status. 14:13 The patient presents with slurring of words. Onset: The symptoms/episode began/occurred cp 3 day(s) ago. Possible causes: fall from bed 3 days ago. 14:15 Current symptoms: In the emergency department the patient's symptoms are unchanged from cp the initial presentation, despite home interventions. Patient's baseline: Neuro: alert but confused, Motor: no deficits, Ambulation: walks with assist only, uses walker, Speech: normal. Historical: - Allergies: 14:04 No Known Drug Allergies; ll1 - PMHx: 14:04 Alzheimers; possible hyperglycemia; ll1 - PSHx: 14:04 Hysterectomy; disc repair in lower back; ll1 - Immunization history:: Flu vaccine is up to date. - Social history:: Smoking status: Patient denies any tobacco usage or history of. ROS: 14:15 Constitutional: Negative for fever. cp 14:15 Neuro: Positive for altered mental status, speech changes. 14:15 Unable to obtain ROS due to altered mental status, baseline dementia. Exam: 14:16 Head/Face: Normocephalic, atraumatic. cp 14:16 Constitutional: The patient appears in no acute distress, alert, awake, non-diaphoretic, non-toxic, well developed, frail. 14:16 Eyes: Pupils: equal, round, and reactive to light and accomodation, Conjunctiva: normal, no exudate, no injection, Sclera: no appreciated abnormality, Lids and lashes: appear normal, bilaterally. 14:16 ENT: External ear(s): are unremarkable, Nose: is normal, Posterior pharynx: Airway: no evidence of obstruction, patent. 14:16 Neck: C-spine: vertebral tenderness, is not appreciated, crepitus, is not appreciated. 14:16 Chest/axilla: Inspection: normal, Palpation: is normal, no crepitus, no tenderness. 14:16 Cardiovascular: Rate: normal, Rhythm: regular, Edema: is not appreciated, JVD: is not appreciated. 14:16 Respiratory: the patient does not display signs of respiratory distress, Respirations: normal, no use of accessory muscles, no retractions, labored breathing, is not present, Breath sounds: are clear throughout, no decreased breath sounds. 14:16 Abdomen/GI: Inspection: abdomen appears normal, Palpation: abdomen is soft and non-tender, in all quadrants. 14:16 Neuro: Orientation: Not oriented to person, place, time, Mentation: unable to follow commands, Motor: moves all fours. 15:35 ECG was reviewed by the Attending Physician. Vital Signs: 14:02 BP 140 / 72; Pulse 88; Resp 22; dm5 14:03 BP 131 / 101; Pulse 95; Resp 18; Temp 97.4(R); Pain 0/10; dm5 14:17 Pulse 123; Pulse Ox 95% on R/A; jp3 16:11 Weight 40.82 kg (R); dm5 16:30 BP 136 / 86; Pulse 88; Resp 20; Pulse Ox 93% on R/A; dm5 16:51 BP 131 / 88; Pulse 95; Resp 29; Pulse Ox 100% on R/A; dm5 MDM: 14:13 Patient medically screened. 16:10 Data reviewed: vital signs, nurses notes, lab test result(s), EKG, radiologic studies, cp CT scan, plain films, and as a result, I will admit patient. 16:10 Test interpretation: by ED physician or midlevel provider: ECG. Physician consultation: santana Rhodes MD was called at 16:05, was contacted at 16:05, regarding admission, to the telemetry unit. patient's condition. 07/26 14:12 Order name: Basic Metabolic Panel cp 07/26 14:12 Order name: CBC with Diff; Complete Time: 14:52 cp 07/26 14:12 Order name: LFT's cp 07/26 14:12 Order name: Magnesium cp 07/26 14:12 Order name: NT PRO-BNP cp 07/26 14:12 Order name: PT-INR; Complete Time: 14:52 cp 07/26 14:12 Order name: Troponin (emerg Dept Use Only); Complete Time: 15:31 cp 07/26 15:31 Interpretation: Abnormal: TROPED 0.10. cp 07/26 14:12 Order name: Lactate; Complete Time: 15:31 cp 07/26 14:12 Order name: Procalcitonin; Complete Time: 15:31 cp 07/26 14:12 Order name: Blood Culture Adult (2) cp 07/26 14:12 Order name: Urine Microscopic Only; Complete Time: 15:39 cp 07/26 14:13 Order name: Basic Metabolic Panel; Complete Time: 15:31 EDMS 07/26 15:31 Interpretation: Normal except: NA 170; CL 140; GLUC 249; BUN 53; GFR 48. cp 07/26 14:13 Order name: Liver (Hepatic) Function; Complete Time: 15:31 EDMS 07/26 15:35 Interpretation: Normal except: ALK 195; GLOB 3.9; A/G 0.9. cp 07/26 14:13 Order name: Magnesium; Complete Time: 15:31 EDMS 07/26 15:35 Interpretation: Abnormal: MG 2.6. cp 07/26 14:12 Order name: XRAY Chest (1 view); Complete Time: 17:47 cp 07/26 14:12 Order name: EKG; Complete Time: 14:13 cp 07/26 14:12 Order name: XRAY Pelvis; Complete Time: 17:47 cp 07/26 14:12 Order name: CT Head C Spine; Complete Time: 15:31 cp 07/26 14:13 Order name: NT PRO-BNP; Complete Time: 15:31 EDMS 07/26 15:04 Order name: Urine Dipstick--Ancillary (enter results) bd 07/26 15:34 Order name: Urine Culture EDIL 07/26 17:12 Order name: COVID-19 dm5 07/26 17:27 Order name: CORONAVIRUS EDIL 07/26 18:14 Order name: SARS-COV-2 RT PCR EDIL 07/26 14:12 Order name: Cardiac monitoring; Complete Time: 14:38 cp 07/26 14:12 Order name: EKG - Nurse/Tech; Complete Time: 15:33 cp 07/26 14:12 Order name: IV Saline Lock; Complete Time: 14:38 cp 07/26 14:12 Order name: Labs collected and sent; Complete Time: 14:38 cp 07/26 14:12 Order name: O2 Per Protocol; Complete Time: 14:38 cp 07/26 14:12 Order name: O2 Sat Monitoring; Complete Time: 14:38 cp 07/26 14:12 Order name: Cath; Complete Time: 15:06 cp 07/26 14:12 Order name: Urine Dipstick-Ancillary (obtain specimen); Complete Time: 15:05 cp 07/26 16:41 Order name: CONS Physician Consult EDMS EC:35 Rate is 96 beats/min. Rhythm is irregular. PA interval is normal. QRS interval is cp prolonged at 104 msec. QT interval is normal. Interpreted by me. Reviewed by me. Administered Medications: 16:08 Not Given (other intervention ordered): NS 0.9% 500 ml IV at 500 ml/hr continuous dm5 16:20 Drug: Rocephin 1 grams Route: IV; Rate: calculated rate; Site: right antecubital; dm5 16:23 Drug: NS 0.45 % 1000 ml Route: IV; Rate: 100 ml/hr; Site: right antecubital; dm5 16:25 Drug: Aspirin Suppository 300 mg Route: PA; dm5 16:42 Drug: Lovenox 1 mg/kg Route: Sub-Q; Site: left upper arm; dm5 17:00 Drug: Ativan 0.5 mg Route: IVP; Site: right antecubital; dm5 18:37 Follow up: Response: No adverse reaction; Anxiety unchanged dm5 Disposition: 20:00 Chart complete. 07/27 07:06 Co-signature as Attending Physician, Melo Martinez MD I agree with the assessment and kdr plan of care. Disposition: 07/26/20 17:23 Hospitalization ordered by Myke Rhodes for Inpatient Admission. Preliminary diagnosis are Hyperosmolality and hypernatremia, Altered mental status, unspecified, Urinary tract infection, site not specified. - Bed requested for Telemetry/MedSurg (Inpatient). - Status is Inpatient Admission. sg - Condition is Fair. - Problem is new. - Symptoms have improved. Signatures: Dispatcher [employer] EDMS Fany Lincoln Deana, RN RN dm5 Ricardo Kruger RN RN sg Rittger, Kevin, MD MD [facility] Elvis Blackwell, [employer] S[employer] EQUIPMENT TECHNICIAN-C [employer]IATION SAFETY EQUIPMENT TECHNICIAN-Cla1 Bentley Cedillo PA PA cp Pippa Rosado, RN RN ll1 Corrections: (The following items were deleted from the chart) 07/26 17:59 17:23 Hospitalization Ordered by Myke Rhodes MD for Inpatient Admission. Preliminary bd diagnosis is Hyperosmolality and hypernatremia; Altered mental status, unspecified; Urinary tract infection, site not specified. Bed requested for Telemetry/MedSurg (Inpatient). Status is Inpatient Admission. Condition is Fair. Problem is new. Symptoms have improved. cp 19:58 17:59 07/26/2020 17:23 Hospitalization Ordered by Myke Rhodes MD for Inpatient sg Admission. Preliminary diagnosis is Hyperosmolality and hypernatremia; Altered mental status, unspecified; Urinary tract infection, site not specified. Bed requested for Telemetry/MedSurg (Inpatient). Status is Inpatient Admission. Condition is Fair. Problem is new. Symptoms have improved. bd
--- NOTE | 2020-07-26 17:24 | ER ---
Nurse's Notes [facility] Name: Maggie Durant Age: 79 yrs Sex: Female : 1940 Arrival Date: 07/26/2020 Time: 14:02 Bed 26 Private MD: Diagnosis: Hyperosmolality and hypernatremia;Altered mental status, unspecified;Urinary tract infection, site not specified Presentation: 07/26 14:03 Chief complaint: Patient states: AMS, babbling since Friday. + weakness, not ll1 eating/drinking well. Coronavirus screen: Client denies travel out of the [place] in the last 14 days. At this time, the client does not indicate any symptoms associated with coronavirus-19. Ebola Screen: Patient denies travel to an Ebola-affected area in the 21 days before illness onset. Initial Sepsis Screen: Does the patient meet any 2 criteria? Altered Mental Status. HR > 90 bpm. Does the patient have a suspected source of infection? No. Patient's initial sepsis screen is negative. Risk Assessment: Do you want to hurt yourself or someone else? Unable to obtain. Onset of symptoms was July 23, 2020. 14:03 Method Of Arrival: EMS: [facility] ll1 14:03 Acuity: LUIS ALBERTO 2 ll1 14:05 Chief complaint: EMS states: A fib with RVR rate 120, fingerstick 309. IV 20 G R AC, IV ll1 fluids started. Historical: - Allergies: 14:04 No Known Drug Allergies; ll1 - PMHx: 14:04 Alzheimers; possible hyperglycemia; ll1 - PSHx: 14:04 Hysterectomy; disc repair in lower back; ll1 - Immunization history:: Flu vaccine is up to date. - Social history:: Smoking status: Patient denies any tobacco usage or history of. Assessment: 18:25 Reassessment: Attempted to give report. Keyanna stated that the patient has not been dm5 assigned and should come up after shift change. Vital Signs: 14:02 BP 140 / 72; Pulse 88; Resp 22; dm5 14:03 BP 131 / 101; Pulse 95; Resp 18; Temp 97.4(R); Pain 0/10; dm5 14:17 Pulse 123; Pulse Ox 95% on R/A; jp3 16:11 Weight 40.82 kg (R); dm5 16:30 BP 136 / 86; Pulse 88; Resp 20; Pulse Ox 93% on R/A; dm5 16:51 BP 131 / 88; Pulse 95; Resp 29; Pulse Ox 100% on R/A; dm5 ED Course: 14:00 Maintain EMS IV. Dressing intact. Good blood return noted. Site clean \T\ dry. Gauge \T\ rosalinda 3 site: 18 Gauge in RAC. Patient maintains SpO2 saturation greater than 95% on room air. 14:02 Patient arrived in ED. ll1 14:04 Triage completed. ll1 14:04 Arm band placed on Patient placed in an exam room, on a stretcher. ll1 14:10 Bentley Cedillo PA is PHCP. cp 14:10 Melo Martinez MD is Attending Physician. cp 14:14 Stefanie Marion, STEVO is Primary Nurse. dm5 14:20 First set of blood cultures drawn by me. jp3 14:25 Initial lab(s) drawn, by me, sent to lab. jp3 14:30 Second set of blood cultures drawn by me. jp3 14:50 Urine collected: Keys catheter specimen, clear, faisal colored, Amount Returned: 130mL. jp3 Keys cath inserted, using sterile technique, 16 Fr., by me, balloon inflated, returned faisal urine. Patient tolerated well. 15:15 CT Head C Spine In Process Unspecified. EDMS 15:32 EKG done, by ED staff, reviewed by Bentley BRANDON X-ray(s) taken. jp3 15:45 XRAY Chest (1 view) In Process Unspecified. EDMS 15:45 XRAY Pelvis In Process Unspecified. EDMS 16:48 Urine Culture Sent. dm5 17:22 Myke Rhodes MD is Hospitalizing Provider. cp Administered Medications: 16:08 Not Given (other intervention ordered): NS 0.9% 500 ml IV at 500 ml/hr continuous dm5 16:20 Drug: Rocephin 1 grams Route: IV; Rate: calculated rate; Site: right antecubital; dm5 16:23 Drug: NS 0.45 % 1000 ml Route: IV; Rate: 100 ml/hr; Site: right antecubital; dm5 16:25 Drug: Aspirin Suppository 300 mg Route: KS; dm5 16:42 Drug: Lovenox 1 mg/kg Route: Sub-Q; Site: left upper arm; dm5 17:00 Drug: Ativan 0.5 mg Route: IVP; Site: right antecubital; dm5 18:37 Follow up: Response: No adverse reaction; Anxiety unchanged dm5 Outcome: 17:23 Decision to Hospitalize by Provider. cp 19:08 Admitted to Med/surg accompanied by tech, via stretcher, with chart, Report called to gordon Elliott RN 19:08 Condition: unchanged 19:08 Discharge instructions given to family, Instructed on the need for admit. 19:58 Patient left the ED. sg Signatures: Dispatcher [employer] EDStefanie Sellers RN RN dm5 Ricardo Kruger RN RN sg Bentley Cedillo PA PA cp Pisarski, Jacob 3 Pippa Rosado RN RN ll1 Corrections: (The following items were deleted from the chart) 14:55 14:03 BP 131 / 101; Pulse 95bpm; Resp 18bpm; Temp 94.7F Axillary; Pain 0/10; ll1 dm5 16:48 16:47 Lovenox 1 mg/kg Sub-Q in left upper arm dm5 dm5
[2020-07-26 20:14] LABS: Urine Blood TRACE (NEG); Urine Glucose 2+ (NEG); Urine Protein 1+ (NEG); Urine Specific Gravity 1.025 (1.005-1.030)
[2020-07-26 20:16] LABS: Potassium 3.5 mmol/L (3.5-5.1)
[2020-07-26] MEDS: INSULIN -REGULAR HUMAN 50 UNIT/0.5 ML ML SQ SCH (20:30)
[2020-07-26] MEDS: NACHLORIDE 0.45% 1,000 ML IV SCH (21:00)
[2020-07-26] MEDS ORDERED: KCL 20 MEQ/100 mL IVPB 0 MEQ/0 ML BAG IV ONE (21:53)
[2020-07-26] MEDS ORDERED: KCL 10 MEQ/100 ML IVPB 10 MEQ/100 ML BAG IV SCH (22:00)
[2020-07-26 22:43] VITALS: BMI 14.9
[2020-07-26] MEDS ORDERED: KCL 20 MEQ/100 mL IVPB 20 MEQ/100 ML BAG IV ONE (23:00)
[2020-07-27 01:30] LABS: Urine Protein/Creatinine Ratio 0.23 ratio (<0.15)
[2020-07-27 02:22] LABS: Urine Appearance CLEAR; Urine Blood NEGATIVE (NEG); Urine Color DK YELLOW; Urine Glucose 3+ (NEG); Urine Protein 1+ (NEG); Urine Specific Gravity >=1.030 (1.005-1.030); Urine pH 5.5 (5.0-7.0)
[2020-07-27 02:44] LABS: Urine Bilirubin NEGATIVE (NEG)
[2020-07-27 02:53] LABS: Urine Bacteria <20 /HPF (<20); Urine Mucus 3+ /HPF (NONE SEEN)
[2020-07-27] MEDS: NACHLORIDE 0.45% 1,000 ML IV SCH (05:16)
[2020-07-27 06:28] LABS: Absolute Lymphocytes (CBC) 1.5 K/uL (0.7-4.9); Basophils % 0.7 % (0-1.3); Hematocrit 38.4 % (36.0-45.0); Lymphocytes % 24.8 % (15.3-44.8); MPV 10.5 fL (7.6-11.3); RBC Red Blood Cell Count 3.96 M/uL (3.86-4.86)
[2020-07-27 06:34] LABS: Albumin 3.5 g/dL (3.4-5.0); Bilirubin Total 0.7 mg/dL (0.2-1.0); Magnesium 2.7 mg/dL (1.8-2.4); Phosphorus 2.6 mg/dL (2.5-4.9); Potassium 3.5 mmol/L (3.5-5.1); Uric Acid 4.9 mg/dL (2.6-6.0)
[2020-07-27] MEDS: INSULIN -REGULAR HUMAN 50 UNIT/0.5 ML ML SQ SCH ×3 (07:30→16:30)
[2020-07-27] MEDS ORDERED: KCL 20 MEQ/100 mL IVPB 20 MEQ/100 ML BAG IV SCH (07:45)
[2020-07-27] MEDS ORDERED: CEFTRIAXONE 1,000 MG in WATER FOR INJ,STERILE 10 ML IVP SCH (09:00)
[2020-07-27] MEDS: ENOXAPARIN 40 MG/0.4 ML SQ SCH (09:00)
[2020-07-27] MEDS ORDERED: CEFTRIAXONE 1 GM/NS 50 ML 1 GM/50 ML BAG IV SCH (09:00)
[2020-07-27] MEDS: D5W 1,000 ML IV SCH ×3 (10:04→22:42)
[2020-07-27] MEDS: CEFTRIAXONE/SWI 1gm 1 GM/10 ML SYR IVP SCH (10:05)
--- NOTE | 2020-07-27 12:11 | P.PN ---
Subjective Date of Service: 07/27/20 Chief Complaint: hypernatremia, AMS Subjective: No new changes (slightly improved, more awake today, however confused /demented, AAOx0. no acute events overnight.) Review of Systems 10-point ROS is otherwise unremarkable Physical Examination - Vital Signs Temperature: 97.4 F Blood Pressure: 131/83 Pulse: 66 Respirations: 18 Pulse Ox (%): 96 - Physical Exam General: Demented, Confused HEENT: Scleral icterus Respiratory: Clear to auscultation bilaterally Cardiovascular: No edema, Regular rate/rhythm Gastrointestinal: Soft and benign, No tenderness Musculoskeletal: No tenderness Integumentary: No significant lesion Neurological: Other (confused, localizes sound, not consistently following simple commands, mumbles), Dementia - Studies Laboratory Data (last 24 hrs) 07/26/20 14:25: PT 15.0 H, INR 1.28 07/26/20 14:25: WBC 5.6, Hgb 12.3, Hct 38.8, Plt Count 306 07/26/20 14:25: Sodium 170 H*, Potassium 3.8, BUN 53 H, Creatinine 1.10, Glucose 249 H, Magnesium 2.6 H, Total Bilirubin 0.7, AST 20, ALT 37, Alkaline Phosphatase 195 H Assessment & Plan Physician Review Additional Text: AMS Fall Hypernatremia, hyperchloremia UTI Alzheimer dementia AMS/Fall possibly due to UTI vs hypernatremia CT head / c-spine negative. CXR negative, hip x-ray negative UA grossly positive for UTI, Ur Cx: GNR+, continue rocephin. afebrile, no leukocytosis Nephrology consulted - for assistance with hypernatremia, Na remains high, switched to D5, repeat BMP in PM hypernatremia likely due to hypovolemia echo ordered after brief discussion with cardiology regarding mildly elevated troponin. doubtful patient can remain still at this time for MRI VTE: lovenox Dispo: hospitalization >2 days, anticipates dc home, possible home health PT to eval once more alert/awake Time Spent Managing Pts Care (In Minutes): 35
[2020-07-27 19:50] LABS: Potassium 3.5 mmol/L (3.5-5.1)
[2020-07-27] MEDS: ENSURE ENLIVE 237 ML CAN PO SCH (20:21)
--- NOTE | 2020-07-27 20:25 | P.CNS ---
Date of Consult: 07/27/20 Reason for Consult: Hypernatremia Requesting Physician: Myke Rhodes Chief Complaint: hypernatremia, AMS History of Present Illness: 79 yo WF Dementia presented to the ER with severe, progressive AMS. Limited HPI/ ROS due to AMS. Case reviewed with the at the bedside. 79yo F, PMH: Alzheimer dementia who was brought to the ED due to altered mental status/lethargy/slurring of speech. is at bedside. He states that approximately 1 week ago patient fell at home, and fell again 3 days ago hitting her head on their dresser. He states he spoke with the their neurologist recommended going to the ER. Has been delayed this. Patient has been more sleepy the last 3 days, sleeping most of day, but waking for meals and to use the bathroom. He reports good appetite, but poor hydration - which is chronic for her. She is typically confused/demented, most times not even oriented to self. 14:13 This 79 yrs old Female presents to ER via EMS with complaints of Altered cp Mental Status. 14:13 The patient presents with slurring of words. Onset: The symptoms/episode began/occurred cp 3 day(s) ago. Possible causes: fall from bed 3 days ago. 14:15 Current symptoms: In the emergency department the patient's symptoms are unchanged from cp the initial presentation, despite home interventions. Patient's baseline: Neuro: alert but confused, Motor: no deficits, Ambulation: walks with assist only, uses walker, Speech: normal. Allergies No Known Drug Allergies Allergy (Verified 07/26/20 21:26) Unknown No Known Allergies Allergy (Uncoded 12/25/17 19:12) Unknown Home medications list reviewed: Yes Home Medications: NK [No Home Meds] 07/27/20 - Past Medical/Surgical History Diabetic: No -: alzheimers -: GERD -: UTI -: hysterectomy -: back surgery -: nodule removal from back - Family History Father Medical History: Diabetes, Kidney disease Mother Notes: dementia Brother Medical History: Diabetes, Cancer Notes: alzheimers Sister Medical History: Stroke - Social History Smoking Status: Never smoker Alcohol use: No CD- Drugs: No Caffeine use: Yes Place of Residence: Home Review of Systems 10-point ROS is otherwise unremarkable Neurological: Weakness, Change in Speech, Confusion Physical Examination Temp Pulse Resp BP Pulse Ox 97.5 F 76 118 H 118/70 92 07/27/20 16:00 07/27/20 16:00 07/27/20 16:00 07/27/20 16:00 07/27/20 16:00 General: In no apparent distress, Demented HEENT: Atraumatic Neck: Supple Respiratory: Clear to auscultation bilaterally Cardiovascular: No edema, Regular rate/rhythm Gastrointestinal: Soft and benign, Non-distended Musculoskeletal: No clubbing, No contractures Integumentary: No rashes, No cyanosis Neurological: Abnormal speech Blood work reviewed in the chart. Imagings Data: EXAM DESCRIPTION: RAD - Chest Single View - 07/26/2020 3:45 pm CLINICAL HISTORY: AMS Chest pain. COMPARISON: CHEST SINGLE VIEW dated 11/01/2014; CHEST PA AND LAT 2 VIEW dated 02/24/2012; CHEST SINGLE VIEW dated 08/26/2010; CHEST SINGLE VIEW dated 08/25/2010 FINDINGS: Portable technique limits examination quality. The lungs are grossly clear. The heart is normal in size. No displaced fractures. IMPRESSION: No acute intrathoracic process suspected. Conclusions/Impression: A/P: Continue current POC and Medications other than the changes listed. AM Labs PRN. Recommend daily weight. 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
[2020-07-27] MEDS: KCL 20 MEQ/100 mL IVPB 20 MEQ/100 ML BAG IV SCH (22:39)
[2020-07-28] MEDS: KCL 20 MEQ/100 mL IVPB 20 MEQ/100 ML BAG IV SCH (01:08)
[2020-07-28] MEDS: D5W 1,000 ML IV SCH ×4 (04:30→23:49)
[2020-07-28 06:25] LABS: Hematocrit 35.6 % (36.0-45.0); MPV 10.5 fL (7.6-11.3); RBC Red Blood Cell Count 3.72 M/uL (3.86-4.86)
[2020-07-28 06:41] LABS: BUN Blood Urea Nitrogen 30 mg/dL (7-18); Bicarbonate 27 mmol/L (21-32); Glucose Level 197 mg/dL (74-106); Potassium 3.9 mmol/L (3.5-5.1); Sodium Level 160 mmol/L (136-145)
[2020-07-28] MEDS: ENSURE ENLIVE 237 ML CAN PO SCH ×2 (08:16→21:00)
[2020-07-28] MEDS: CEFTRIAXONE/SWI 1gm 1 GM/10 ML SYR IVP SCH (08:16)
[2020-07-28] MEDS: ENOXAPARIN 40 MG/0.4 ML SQ SCH (08:16)
[2020-07-28] MEDS ORDERED: KCL 20 MEQ/100 mL IVPB 20 MEQ/100 ML BAG IV SCH (16:00)
--- NOTE | 2020-07-28 20:51 | P.PN ---
Subjective Date of Service: 07/28/20 Chief Complaint: hypernatremia, AMS Subjective: Other ( reports ~30% improvement of mentation. She is more awake, talking more, however not making sense, mumbling, not oriented) Review of Systems is unable to be obtained Physical Examination - Vital Signs Temperature: 97.1 F Blood Pressure: 146/92 Pulse: 62 Respirations: 16 Pulse Ox (%): 90 - Physical Exam General: In no apparent distress, Cachectic, Confused HEENT: Sclerae nonicteric Respiratory: Clear to auscultation bilaterally Cardiovascular: No edema, Regular rate/rhythm Gastrointestinal: Soft and benign, Non-distended, No tenderness Musculoskeletal: No tenderness Integumentary: No rashes Neurological: Dementia Urinary: Keys catheter (dark yellow urine) - Studies Microbiology Data (last 24 hrs): 07/26/20 14:50 Clean Catch Urine [place] Count - Final >100,000 CFU/ML. 07/26/20 14:50 Clean Catch Urine - Final Escherichia Coli Assessment & Plan Physician Review Additional Text: AMS Fall Hypernatremia, hyperchloremia UTI Alzheimer dementia AMS/Fall possibly due to UTI vs hypernatremia CT head / c-spine negative. CXR negative, hip x-ray negative UA grossly positive for UTI, Ur Cx: E.coli, continue rocephin, afebrile, no leukocytosis Nephrology consulted - for assistance with hypernatremia, Na remains high, on D5 hypernatremia likely due to hypovolemia echo ordered after brief discussion with cardiology regarding mildly elevated troponin, however unable to obtain echo due to patient not cooperating VTE: lovenox Dispo: hospitalization >2 days, anticipates dc home, would benefit from home health PT to eval once more alert/awake. Will continue to get weaker while in bed, may need SNF Time Spent Managing Pts Care (In Minutes): 35
[2020-07-29] MEDS: D5W 1,000 ML IV SCH ×2 (03:53→11:35)
[2020-07-29 07:32] LABS: BUN Blood Urea Nitrogen 17 mg/dL (7-18); Bicarbonate 25 mmol/L (21-32); Glucose Level 203 mg/dL (74-106); Phosphorus 1.5 mg/dL (2.5-4.9); Potassium 3.7 mmol/L (3.5-5.1); Sodium Level 149 mmol/L (136-145); Uric Acid 2.3 mg/dL (2.6-6.0)
[2020-07-29 07:49] LABS: Hematocrit 34.3 % (36.0-45.0); MPV 10.9 fL (7.6-11.3); RBC Red Blood Cell Count 3.62 M/uL (3.86-4.86)
[2020-07-29] MEDS: ENSURE ENLIVE 237 ML CAN PO SCH ×2 (09:00→22:56)
[2020-07-29] MEDS: ENOXAPARIN 40 MG/0.4 ML SQ SCH (10:21)
[2020-07-29] MEDS: CEFTRIAXONE/SWI 1gm 1 GM/10 ML SYR IVP SCH (10:21)
--- NOTE | 2020-07-29 15:26 | P.PN ---
Subjective Date of Service: 07/29/20 Chief Complaint: hypernatremia, AMS Subjective: No new changes (slightly more alert, remains confused, states still not at baseline. eating well) Review of Systems is unable to be obtained Physical Examination - Vital Signs Temperature: 97.9 F Blood Pressure: 119/73 Pulse: 75 Respirations: 18 Pulse Ox (%): 92 - Physical Exam General: In no apparent distress, Confused, Other (responds to voice, however mumbles and not coherent) HEENT: PERRLA Respiratory: Clear to auscultation bilaterally Cardiovascular: No edema, Regular rate/rhythm Gastrointestinal: Soft and benign, No tenderness Musculoskeletal: No tenderness Integumentary: No rashes Assessment & Plan Physician Review Additional Text: AMS Fall Hypernatremia, hyperchloremia UTI Alzheimer dementia AMS/Fall possibly due to UTI vs hypernatremia CT head / c-spine negative. CXR negative, hip x-ray negative UA grossly positive for UTI, Ur Cx: E.coli, continue rocephin, afebrile, no leukocytosis Nephrology consulted - for assistance with hypernatremia, Na improving, on D5 hypernatremia likely due to hypovolemia, urine clearing up as well echo ordered after brief discussion with cardiology regarding mildly elevated troponin, however unable to obtain echo due to patient not cooperating VTE: lovenox Dispo: anticipate dc in ~2 days, anticipates dc home, would benefit from home health PT to eval once more alert/awake. Will continue to get weaker while in bed, may need SNF - discussed with , understands but hoping for home Time Spent Managing Pts Care (In Minutes): 35
[2020-07-30] MEDS: D5W 1,000 ML IV SCH ×2 (02:14→02:59)
[2020-07-30 07:03] LABS: BUN Blood Urea Nitrogen 13 mg/dL (7-18); Bicarbonate 26 mmol/L (21-32); Glucose Level 229 mg/dL (74-106); Magnesium 2.2 mg/dL (1.8-2.4); Phosphorus 1.7 mg/dL (2.5-4.9); Potassium 3.4 mmol/L (3.5-5.1); Sodium Level 142 mmol/L (136-145)
--- NOTE | 2020-07-30 08:42 | P.PN ---
Date of Service: 07/29/20 Vital Signs Temp Pulse Resp BP Pulse Ox 99.2 F 91 H 20 142/61 H 92 07/30/20 04:00 07/30/20 04:00 07/30/20 04:00 07/30/20 04:00 07/30/20 04:00 Medications Enoxaparin Sodium (Enoxaparin 40 Mg/0.4 Ml) 40 mg SQ DAILY [facility] Stop: 08/26/20 09:01 Last Admin: 07/29/20 10:21 Dose: 40 mg Documented by: Ceftriaxone Sodium/Sodium Chloride (Rocephin 1 Gm/10 Ml Swi Ivp) 1 gm in 10 mls @ 600 mls/hr IVP DAILY [facility] Stop: 08/26/20 09:01 Last Admin: 07/29/20 10:21 Dose: 10 mls Documented by: Potassium Phosphate (Potassium Phos 15 Mmol/250 Ml Ns) 15 mmol in 250 mls @ 62.5 mls/hr IV 1X ONE; Protocol Stop: 07/30/20 12:59 Potassium Chloride 10 meq/ (Sodium Chloride) 1,005 mls @ 75 mls/hr IV .[id number] [facility] Stop: 08/29/20 09:01 Nutritional Formula (Ensure Enlive 237 Ml Can) 237 ml PO BID [facility] Stop: 08/26/20 21:01 Last Admin: 07/29/20 22:56 Dose: 237 ml Documented by: Sodium Chloride (Flush Normal Saline 10 Ml) 10 ml IV BID [facility] Stop: 08/25/20 21:01 Last Admin: 07/29/20 22:57 Dose: 10 ml Documented by: Microbiology Results 07/26/20 14:50 Clean Catch Urine [place] Count - Final >100,000 CFU/ML. 07/26/20 14:50 Clean Catch Urine - Final Escherichia Coli 07/26/20 14:20 Blood - Blood Aerobic Blood Culture - Preliminary No growth in 24 hours. 07/26/20 14:20 Blood - Blood Anaerobic Blood Culture - Preliminary No growth in 24 hours. 07/26/20 14:30 Blood - Blood Aerobic Blood Culture - Preliminary No growth in 24 hours. 07/26/20 14:30 Blood - Blood Anaerobic Blood Culture - Preliminary No growth in 24 hours. Assessment/ Plan: Nephrology Limited IH/ ROS due to dementia. Case reviewed with the at the bedside. He reports no acute events and states she is stable. Vitals, medications, blood work and imaging reviewed in the chart. General: In no apparent distress, Demented HEENT: Atraumatic Neck: Supple Respiratory: Clear to auscultation bilaterally Cardiovascular: No edema, Regular rate/rhythm Gastrointestinal: Soft and benign, Non-distended Musculoskeletal: No clubbing, No contractures Integumentary: No rashes, No cyanosis Neurological: Abnormal speech Blood work reviewed in the chart. Imagings Data: EXAM DESCRIPTION: RAD - Chest Single View - 07/26/2020 3:45 pm CLINICAL HISTORY: AMS Chest pain. COMPARISON: CHEST SINGLE VIEW dated 11/01/2014; CHEST PA AND LAT 2 VIEW dated 02/24/2012; CHEST SINGLE VIEW dated 08/26/2010; CHEST SINGLE VIEW dated 08/25/2010 FINDINGS: Portable technique limits examination quality. The lungs are grossly clear. The heart is normal in size. No displaced fractures. IMPRESSION: No acute intrathoracic process suspected. Conclusions/Impression: A/P: Continue current POC and Medications other than the changes listed. AM Labs PRN. Recommend daily weight. Hypernatemia/ Dehydration improving -Change IVF to 1/2NS with potassium. 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
[2020-07-30] MEDS: NACHLORIDE 0.45% 1,000 ML with POTASSIUM CL 10 MEQ IV SCH ×2 (09:00)
[2020-07-30] MEDS ORDERED: POTASSIUM PHOS IN 0.9 % NACL 15 MMOL/250 ML BAG IV ONE (09:00)
[2020-07-30] MEDS: ENSURE ENLIVE 237 ML CAN PO SCH ×2 (09:00→21:37)
[2020-07-30] MEDS: ENOXAPARIN 40 MG/0.4 ML SQ SCH (09:49)
[2020-07-30] MEDS: CEFTRIAXONE/SWI 1gm 1 GM/10 ML SYR IVP SCH (09:50)
[2020-07-30] MEDS ORDERED: ACETAMINOPHEN 650MG/RECT SUPP PR ONE (11:00)
--- NOTE | 2020-07-30 11:31 | RAD REPORT ---
EXAM DESCRIPTION: RAD - Chest Single View - 07/30/2020 10:58 am CLINICAL HISTORY: decreased LOC Chest pain. COMPARISON: Chest Single View dated 07/26/2020; CHEST SINGLE VIEW dated 11/01/2014; CHEST PA AND LAT 2 VIEW dated 02/24/2012; CHEST SINGLE VIEW dated 08/26/2010 FINDINGS: Portable technique limits examination quality. The lungs are grossly clear. The heart is normal in size. Tortuous thoracic aorta with aortic atheros clerosis IMPRESSION: No acute intrathoracic process suspected.
--- NOTE | 2020-07-30 16:30 | P.PN ---
Subjective Date of Service: 07/30/20 Chief Complaint: hypernatremia, AMS Subjective: Other (sleepy this morning, difficult to arouse, but more awake later in the morning. states improved compared to prior days, more alert when awake. Ate lunch) Review of Systems is unable to be obtained Physical Examination - Vital Signs Temperature: 98.4 F Blood Pressure: 101/68 Pulse: 98 Respirations: 20 Pulse Ox (%): 94 - Physical Exam General: Demented, Confused HEENT: Sclerae nonicteric Respiratory: Clear to auscultation bilaterally Cardiovascular: No edema, Regular rate/rhythm Gastrointestinal: Soft and benign, No tenderness Musculoskeletal: No tenderness Integumentary: No rashes Neurological: Dementia Urinary: Keys catheter Assessment & Plan Physician Review Additional Text: AMS Fall Hypernatremia, hyperchloremia UTI Alzheimer dementia AMS/Fall possibly due to UTI vs hypernatremia CT head / c-spine negative. CXR negative, hip x-ray negative UA grossly positive for UTI, Ur Cx: E.coli, no leukocytosis febrile today, repeat UA, blood/urine culture, continue rocephin Nephrology consulted - for assistance with hypernatremia, Na improving hypernatremia likely due to hypovolemia, urine clearing up as well VTE: lovenox Dispo: anticipate dc in ~24/48hrs, anticipates dc home, would benefit from home health PT to eval once more alert/awake. Will continue to get weaker while in bed, may need SNF - discussed again with , understands but hoping for home if no significant improvement despite appropriate treatment of UTI, negative cultures, normalization of sodium, this may be patient's baseline with severe dementia and may be more appropriate for home hospice Time Spent Managing Pts Care (In Minutes): 35
[2020-07-31] MEDS: NACHLORIDE 0.45% 1,000 ML with POTASSIUM CL 10 MEQ IV SCH ×4 (01:15→11:48)
[2020-07-31 06:23] LABS: Hematocrit 26.7 % (36.0-45.0); MPV 10.5 fL (7.6-11.3)
[2020-07-31] MEDS ORDERED: D50W 25 GM/50 ML SYRINGE IV PRN (06:32)
[2020-07-31] MEDS ORDERED: GLUCAGON 1 MG/VIAL IM PRN (06:32)
[2020-07-31 07:16] LABS: ALT/SGPT 55 U/L (12-78); AST/SGOT 43 U/L (15-37); Albumin 2.4 g/dL (3.4-5.0); Alkaline Phosphatase 132 U/L (45-117); BUN Blood Urea Nitrogen 15 mg/dL (7-18); Bicarbonate 25 mmol/L (21-32); Bilirubin Total 0.4 mg/dL (0.2-1.0); Glucose Level 149 mg/dL (74-106); Magnesium 2.3 mg/dL (1.8-2.4); Phosphorus 1.7 mg/dL (2.5-4.9); Potassium 3.6 mmol/L (3.5-5.1); Protein, Total 5.5 g/dL (6.4-8.2); Sodium Level 144 mmol/L (136-145)
[2020-07-31] MEDS: INSULIN -REGULAR HUMAN 50 UNIT/0.5 ML ML SQ SCH ×4 (07:30→21:00)
[2020-07-31] MEDS: CEFTRIAXONE/SWI 1gm 1 GM/10 ML SYR IVP SCH (08:25)
[2020-07-31] MEDS: ENOXAPARIN 40 MG/0.4 ML SQ SCH (08:25)
[2020-07-31] MEDS: ENSURE ENLIVE 237 ML CAN PO SCH ×2 (08:25→21:56)
[2020-07-31 11:44] LABS: Urine Appearance TURBID; Urine Bilirubin NEGATIVE (NEG); Urine Blood 1+ (NEG); Urine Color YELLOW; Urine Glucose 3+ (NEG); Urine Protein TRACE (NEG)
[2020-07-31 12:27] LABS: Urine Microscopic Reflex ORDER UMIC
[2020-07-31 12:38] LABS: Urine Bacteria 20-50 /HPF (<20)
--- NOTE | 2020-07-31 17:19 | P.PN ---
Subjective Date of Service: 07/31/20 Chief Complaint: hypernatremia, AMS Subjective: Improving (Slightly more awake/alert, ate approximately 50% of meals, had fever yesterday, pending cultures feels she is ~50% at baseline) Review of Systems 10-point ROS is otherwise unremarkable Physical Examination - Vital Signs Temperature: 98.8 F Blood Pressure: 115/61 Pulse: 95 Respirations: 16 Pulse Ox (%): 94 - Physical Exam General: In no apparent distress, Confused HEENT: Sclerae nonicteric Respiratory: Clear to auscultation bilaterally Cardiovascular: No edema, Regular rate/rhythm Gastrointestinal: Soft and benign, No tenderness Musculoskeletal: No tenderness Integumentary: No significant lesion - Studies Microbiology Data (last 24 hrs): 07/26/20 14:20 Blood - Blood Aerobic Blood Culture - Final No growth in 5 days. 07/26/20 14:20 Blood - Blood Anaerobic Blood Culture - Final No growth in 5 days. 07/26/20 14:30 Blood - Blood Aerobic Blood Culture - Final No growth in 5 days. 07/26/20 14:30 Blood - Blood Anaerobic Blood Culture - Final No growth in 5 days. Assessment & Plan Physician Review Additional Text: AMS Fall Hypernatremia, hyperchloremia UTI Alzheimer dementia AMS/Fall possibly due to UTI vs hypernatremia CT head / c-spine negative. CXR negative, hip x-ray negative UA grossly positive for UTI, Ur Cx: E.coli, no leukocytosis febrile 07/30, repeated blood cultures, on rocephin, UA not obtained overnight - will get straight cath today Nephrology consulted - for assistance with hypernatremia, resolved hypernatremia likely due to hypovolemia unable to lay still for MRI VTE: lovenox Dispo: anticipate dc in ~24hrs, anticipates dc home, would benefit from home health discussed with - he states he has hired caregivers that will be able to assist with the patient at home Time Spent Managing Pts Care (In Minutes): 35
[2020-07-31] MEDS ORDERED: POTASSIUM PHOS 30 MM in NA CHLORIDE 0.9% 500 ML IV ONE (20:47)
--- NOTE | 2020-07-31 20:51 | P.PN ---
Date of Service: 07/31/20 Vital Signs Temp Pulse Resp BP Pulse Ox 98.8 F 95 H 16 115/61 94 07/31/20 17:19 07/31/20 17:19 07/31/20 17:19 07/31/20 17:19 07/31/20 17:19 Medications Dextrose (D50w 25 Gm/50 Ml Syringe) 12.5 gm IV PRN PRN PRN Reason: HYPOGLYCEMIA Stop: 08/30/20 06:33 Enoxaparin Sodium (Enoxaparin 40 Mg/0.4 Ml) 40 mg SQ DAILY [facility] Stop: 08/26/20 09:01 Last Admin: 07/31/20 08:25 Dose: 40 mg Documented by: Glucagon (Glucagon 1 Mg/Vial) 1 mg IM 1X PRN PRN Reason: HYPOGLYCEMIA Stop: 08/30/20 06:33 Ceftriaxone Sodium/Sodium Chloride (Rocephin 1 Gm/10 Ml Swi Ivp) 1 gm in 10 mls @ 600 mls/hr IVP DAILY [facility] Stop: 08/26/20 09:01 Last Admin: 07/31/20 08:25 Dose: 10 mls Documented by: Potassium Chloride 10 meq/ (Sodium Chloride) 1,005 mls @ 75 mls/hr IV .[id number] [facility] Stop: 08/29/20 09:01 Last Admin: 07/31/20 11:48 Dose: 1,005 mls Documented by: Potassium Phosphate 30 mm/ (Sodium Chloride) 500 mls @ 100 mls/hr IV 1X ONE; Protocol Stop: 08/01/20 01:46 Insulin Human Regular (Insulin -Regular Human 50 Unit/0.5 Ml Ml) 0 unit SQ ACHS [facility]; Protocol Stop: 08/30/20 07:31 Last Admin: 07/31/20 16:30 Dose: Not Given Documented by: Nutritional Formula (Ensure Enlive 237 Ml Can) 237 ml PO BID [facility] Stop: 08/26/20 21:01 Last Admin: 07/31/20 08:25 Dose: 237 ml Documented by: Sodium Chloride (Flush Normal Saline 10 Ml) 10 ml IV BID [facility] Stop: 08/25/20 21:01 Last Admin: 07/31/20 08:26 Dose: 10 ml Documented by: Microbiology Results 07/26/20 14:20 Blood - Blood Aerobic Blood Culture - Final No growth in 5 days. 07/26/20 14:20 Blood - Blood Anaerobic Blood Culture - Final No growth in 5 days. 07/26/20 14:30 Blood - Blood Aerobic Blood Culture - Final No growth in 5 days. 07/26/20 14:30 Blood - Blood Anaerobic Blood Culture - Final No growth in 5 days. 07/26/20 14:50 Clean Catch Urine [place] Count - Final >100,000 CFU/ML. 07/26/20 14:50 Clean Catch Urine - Final Escherichia Coli Assessment/ Plan: Nephrology Limited IH/ ROS due to dementia. Case reviewed with the at the bedside. He reports no acute events and states she is stable. Vitals, medications, blood work and imaging reviewed in the chart. General: In no apparent distress, Demented HEENT: Atraumatic Neck: Supple Respiratory: Clear to auscultation bilaterally Cardiovascular: No edema, Regular rate/rhythm Gastrointestinal: Soft and benign, Non-distended Musculoskeletal: No clubbing, No contractures Integumentary: No rashes, No cyanosis Neurological: Abnormal speech Blood work reviewed in the chart. Imagings Data: EXAM DESCRIPTION: RAD - Chest Single View - 07/26/2020 3:45 pm CLINICAL HISTORY: AMS Chest pain. COMPARISON: CHEST SINGLE VIEW dated 11/01/2014; CHEST PA AND LAT 2 VIEW dated 02/24/2012; CHEST SINGLE VIEW dated 08/26/2010; CHEST SINGLE VIEW dated 08/25/2010 FINDINGS: Portable technique limits examination quality. The lungs are grossly clear. The heart is normal in size. No displaced fractures. IMPRESSION: No acute intrathoracic process suspected. Conclusions/Impression: A/P: Continue current POC and Medications other than the changes listed. AM Labs PRN. Recommend daily weight. Hypernatemia/ Dehydration improving -Continue gentle IVF. Hypokalemia -Replete potassium. HypoPO4 -Replete with IV PO4 Proteinuria -Repeat UA as needed Anemia in chronic illness, worse -Transfuse PRBC as needed. Acute E.coli cystitis -Continue abx -May benefit from outpt cranberry caps Toxic metobolic encephalopathy complicated by Alz Dementia -Correct electrolytes -Advance diet as tolerated
[2020-07-31] MEDS ORDERED: POTASSIUM PHOS IN 0.9 % NACL 30 MMOL/500 ML BAG IV ONE (22:02)
[2020-08-01] MEDS: NACHLORIDE 0.45% 1,000 ML with POTASSIUM CL 10 MEQ IV SCH ×2 (01:52)
[2020-08-01 06:04] LABS: Hematocrit 25.2 % (36.0-45.0); MPV 10.7 fL (7.6-11.3); RBC Red Blood Cell Count 2.73 M/uL (3.86-4.86)
[2020-08-01 06:14] LABS: BUN Blood Urea Nitrogen 14 mg/dL (7-18); Bicarbonate 26 mmol/L (21-32); Glucose Level 116 mg/dL (74-106); Magnesium 2.1 mg/dL (1.8-2.4); Phosphorus 2.8 mg/dL (2.5-4.9); Sodium Level 143 mmol/L (136-145)
[2020-08-01] MEDS: INSULIN -REGULAR HUMAN 50 UNIT/0.5 ML ML SQ SCH ×3 (07:30→16:23)
[2020-08-01] MEDS: ENSURE ENLIVE 237 ML CAN PO SCH (09:00)
[2020-08-01] MEDS: ENOXAPARIN 40 MG/0.4 ML SQ SCH (09:05)
[2020-08-01] MEDS: CEFTRIAXONE/SWI 1gm 1 GM/10 ML SYR IVP SCH (09:05)
[2020-08-01 10:04] VITALS: O2SAT 93
[2020-08-01 10:05] VITALS: TEMP 98
--- NOTE | 2020-08-01 11:17 | P.DS ---
Admission Date: 07/26/20 Discharge Date: 08/01/20 Disposition: DC HOME/HOME HEALTH CARE Discharge Condition: FAIR Reason for Admission: hypernatremia, AMS Consultations: Nephrology-Dr. Cedillo. - Problems (1) Metabolic encephalopathy Status: Acute (2) UTI (urinary tract infection) Status: Acute (3) Hypernatremia Status: Acute (4) Dementia Onset Date: 09/08/17 Status: Chronic Qualifiers: Dementia type: Alzheimer's disease Brief History of Present Illness: 79-year-old woman with a history of resume dementia was brought to the emergency department due to increased confusion, lethargy and slurred speech. Patient is reported to have fallen and hit her head prior to the ED presentation. Workup in the emergency department revealed hypernatremia with sodium of 170 and UA showing significant evidence of UTI. Patient was admitted for further management. Hospital Course: Patient admitted to the medical floor and aggressively hydrated with IV fluid. Nephrology was consulted to assist with management of the hypernatremia. Urine culture grew E. coli. UTI was treated with IV Rocephin. Patient mental status improved with treatment. Vitals are stable. reports good social support and desired patient to be discharged home. Patient has clinically improved. Hypernatremia resolved with IV hydration. She is discharged home wit h oral antibiotics to complete treatment for UTI. Vital Signs/Physical Exam: Temp Pulse Resp BP Pulse Ox 98.0 F 59 18 120/58 L 98 08/01/20 08:00 08/01/20 08:00 08/01/20 08:00 08/01/20 08:00 08/01/20 08:00 General: Confused, Other (Awake) HEENT: Mucous membr. moist/pink Neck: JVD not distended Respiratory: Clear to auscultation bilaterally, Normal air movement Cardiovascular: Regular rate/rhythm, Normal S1 S2 Gastrointestinal: Normal bowel sounds, Soft and benign, Non-distended, No tenderness Musculoskeletal: No swelling Neurological: Other (No focal neurologic deficit.) Laboratory Data at Discharge: WBC 6.3 K/uL (4.3-10.9) D 08/01/20 05:39 Hgb 8.8 g/dL (12.0-15.0) L 08/01/20 05:39 Hct 25.2 % (36.0-45.0) L 08/01/20 05:39 Plt Count 152 K/uL (152-406) 08/01/20 05:39 PT 15.0 SECONDS (9.5-12.5) H 07/26/20 14:25 INR 1.28 07/26/20 14:25 Sodium 143 mmol/L (136-145) 08/01/20 05:39 Potassium 4.0 mmol/L (3.5-5.1) 08/01/20 05:39 BUN 14 mg/dL (7-18) 08/01/20 05:39 Creatinine 0.40 mg/dL (0.55-1.3) L 08/01/20 05:39 Glucose 116 mg/dL (74-106) H 08/01/20 05:39 Uric Acid 2.3 mg/dL (2.6-6.0) L 07/29/20 06:40 Phosphorus 2.8 mg/dL (2.5-4.9) D 08/01/20 05:39 Magnesium 2.1 mg/dL (1.8-2.4) 08/01/20 05:39 Total Bilirubin 0.4 mg/dL (0.2-1.0) 07/31/20 05:38 AST 43 U/L (15-37) H 07/31/20 05:38 ALT 55 U/L (12-78) 07/31/20 05:38 Alkaline Phosphatase 132 U/L (45-117) H 07/31/20 05:38 Troponin I 0.14 ng/mL (0.0-0.045) H 07/27/20 08:52 Home Medications: Cefpodoxime Proxetil 100 mg PO BID #10 tablet 08/01/20 Ensure Enlive 237 ml PO BID #60 can 08/01/20 New Medications: Cefpodoxime Proxetil 100 mg PO BID #10 tablet Ensure Enlive 237 ml PO BID #60 can Diet: ADA Activity: Fall precautions Followup: Unknown,U [Primary Care Provider] - 1-2 Weeks Time spent managing pt's care (in minutes): 40
[2020-08-01 14:38] VITALS: BP 95/52
[2020-08-01] MEDS ORDERED: D50W 25 GM/50 ML VIAL IV PRN (15:00)
--- NOTE | 2020-08-01 21:46 | P.PN ---
Date of Service: 08/01/20 Vital Signs Temp Pulse Resp BP Pulse Ox 98.0 F 75 18 95/52 L 96 08/01/20 12:00 08/01/20 12:00 08/01/20 12:00 08/01/20 12:00 08/01/20 12:00 Microbiology Results 07/26/20 14:20 Blood - Blood Aerobic Blood Culture - Final No growth in 5 days. 07/26/20 14:20 Blood - Blood Anaerobic Blood Culture - Final No growth in 5 days. 07/26/20 14:30 Blood - Blood Aerobic Blood Culture - Final No growth in 5 days. 07/26/20 14:30 Blood - Blood Anaerobic Blood Culture - Final No growth in 5 days. 07/26/20 14:50 Clean Catch Urine [place] Count - Final >100,000 CFU/ML. 07/26/20 14:50 Clean Catch Urine - Final Escherichia Coli Assessment/ Plan: Nephrology Limited IH/ ROS due to dementia. No acute events overnight. Vitals, medications, blood work and imaging reviewed in the chart. General: In no apparent distress, Demented HEENT: Atraumatic Neck: Supple Respiratory: Clear to auscultation bilaterally Cardiovascular: No edema, Regular rate/rhythm Gastrointestinal: Soft and benign, Non-distended Musculoskeletal: No clubbing, No contractures Integumentary: No rashes, No cyanosis Neurological: Abnormal speech Blood work reviewed in the chart. Imagings Data: EXAM DESCRIPTION: RAD - Chest Single View - 07/26/2020 3:45 pm CLINICAL HISTORY: AMS Chest pain. COMPARISON: CHEST SINGLE VIEW dated 11/01/2014; CHEST PA AND LAT 2 VIEW dated 02/24/2012; CHEST SINGLE VIEW dated 08/26/2010; CHEST SINGLE VIEW dated 08/25/2010 FINDINGS: Portable technique limits examination quality. The lungs are grossly clear. The heart is normal in size. No displaced fractures. IMPRESSION: No acute intrathoracic process suspected. Conclusions/Impression: A/P: Continue current POC and Medications other than the changes listed. AM Labs PRN. Recommend daily weight. Hypernatemia/ Dehydration resolved -Discontinue IVF -Maintain oral nutrition and hydration Hypokalemia -Replete potassium prn HypoPO4 -Replete prn Proteinuria Anemia in chronic illness -Transfuse PRBC as needed. Acute E.coli cystitis -Continue abx -May benefit from outpt cranberry caps Toxic metobolic encephalopathy complicated by Alz Dementia -Correct electrolytes -Advance diet as tolerated
== END 2020-08-01 17:05 | disposition home health service (06) | DRG 640 ==
LOC: ER 13:58 → ERHOLD 16:39 → 2ND 19:36
PROVIDERS: ADMIT Hospitalist; ATTEND Internal Medicine
DX: E87.0 Hyperosmolality and hypernatremia (principal); G93.41 Metabolic encephalopathy; N30.00 Acute cystitis without hematuria; E44.1 Mild protein-calorie malnutrition; Z68.1 Body mass index [BMI] 19.9 or less, adult; K21.9 Gastro-esophageal reflux disease without esophagitis; G30.9 Alzheimer's disease, unspecified; F02.80 Dementia in other diseases classified elsewhere, unspecified severity, without behavioral disturbance, psychotic disturbance, mood disturbance, and anxiety; E86.0 Dehydration; E87.6 Hypokalemia; E87.8 Other disorders of electrolyte and fluid balance, not elsewhere classified; E83.39 Other disorders of phosphorus metabolism; B96.20 Unspecified Escherichia coli [E. coli] as the cause of diseases classified elsewhere; R80.9 Proteinuria, unspecified; Z91.81 History of falling; Z90.710 Acquired absence of both cervix and uterus; Z79.899 Other long term (current) drug therapy; Z66 Do not resuscitate; Z20.822 Contact with and (suspected) exposure to COVID-19
CPT/HCPCS: 36415; 51702; 70450; 71045; 72125; 72170; 80048; 80053; 80076; 81001; 81003; 81015; 82570; 82947; 83036; 83605; 83735; 83880; 83930; 83935; 84100; 84132; 84145; 84156; 84300; 84484; 84550; 85025; 85027; 85610; 87040; 87077; 87086; 87088; 87186; 92526; 92610; 93005; 94760; 96372; 96374; 96375; 97161; 97530; 99285; J0696; J1650; J3480; J7040; U0003

== ENCOUNTER 2020-12-21 09:35 | Emergency (ER) | payer OTHER ==
--- OUTSIDE RECORDS SUMMARY | 2020-12-21 09:38 | XMS REPORT | Continuity of Care Document ---
:1940 Author Organization [facility] t Address [address] [place] [id number] Care Team Providers Name Role Phone Unavailable Unavailable Unavailable Problems Condition Condition Condition Status Onset Resolution Last Treating Co mments Source Name Details Category Date Date Treatment Clinician Date Pain of Pain of Problem Active [facility] Prediabete Prediabete Problem Active [facility] Pain in Pain in Problem Active [facility] right hand right hand [facility] Trigger Trigger Problem Active [facility] finger of finger of [facility] - both hands both hands [facility] Alzheimer Alzheimer Problem Active [facility] disease disease [facility] Hyperchole Hyperchole Problem Active [facility] sterolemia sterolemia [facility] Vitamin D Vitamin D Problem Active [facility] deficiency deficiency [facility] Atrial Atrial Problem Active [facility] fibrillati fibrillati [facility]ita kes - on on [facility] Depression Depression Problem Active [facility] screening screening [facility] Medicare Medicare Diagnosis Active [facility] annual annual [facility], visit[facility] Allergies, Adverse Reactions, Alerts This patient has no known allergies or adverse reactions. Medications Ordered Filled Start Stop Current Ordering Indication Dosage Frequency Signature Comments Components Source Medication Medication Date Date Medication? Clinician (SIG) Name Name Sucralfate Sucralfate Yes Nena [address] [facility] Mill[facility] at bedtime [facility] - on an Memoria empty l stomach Outpati before ent meals Clinics Bentyl Bentyl Yes Nena [address] [facility] Donepezil Donepezil Yes Nena [address] [facility] HCl HCl Millender at bedtime [facility] Geodon Geodon Yes Nena 1 capsule [facility] with food [facility] Vitamin D3 Vitamin D3 Yes Nena [address] [facility] Namenda XR Namenda XR Yes Nena [address] [facility] Nexium Nexium Yes Nena [facility] Procedures This patient has no known procedures. Encounters Start End Encounter Admission Attending Care Care Encounter Source Date/Time Date/Time Type Type Clinicians Facility Department ID 2019-03-09 2019-03-09 Outpatient Charles Craft [id number] [facility] 14:15:00 14:15:00 [facility] 2018-11-12 2018-11-12 Outpatient Charles Craft [id number] [facility] 14:40:00 14:40:00 [facility] Results This patient has no known results.
[2020-12-21 10:13] LABS: Urine Blood Trace-intact (Negative); Urine Glucose Negative (Negative); Urine Protein 2+ (Negative); Urine Specific Gravity 1.025 (1.005-1.030)
[2020-12-21 10:21] LABS: Absolute Lymphocytes (CBC) 1.4 K/uL (0.7-4.9); Basophils % 0.5 % (0-1.3); Hematocrit 32.4 % (36.0-45.0); MPV 7.9 fL (7.6-11.3); RBC Red Blood Cell Count 3.44 M/uL (3.86-4.86)
--- NOTE | 2020-12-21 10:26 | RAD REPORT ---
EXAM DESCRIPTION: Shantel Single View12/21/2020 10:20 am CLINICAL HISTORY: Shortness of breath COMPARISON: July 2020 FINDINGS: The lungs appear clear of acute infiltrate. The heart is mildly to moderately enlarged IMPRESSION: No acute abnormalities displayed
--- NOTE | 2020-12-21 10:28 | RAD REPORT ---
EXAM DESCRIPTION: CT - Head Brain Wo Cont - 12/21/2020 10:19 am CLINICAL HISTORY: Seizure COMPARISON: July 2020 TECHNIQUE: Computed axial tomography of the head was obtained. IV contrast was not requested. All CT scans are performed using dose optimization technique as appropriate and may include automated exposure control or mA/KV adjustment according to patient size. FINDINGS: An intracranial bleed is not seen . The ventricles are normal in caliber. No extra-axial fluid collection is noted. Moderate low-density areas within periventricular, deep and subcortical white matter likely represent ischemic changes secondary to small vessel disease. Cerebral atrophy is again demonstrated Fluid within the sinuses/ mastoids is not seen. IMPRESSION: No acute intracranial abnormality is seen. If patient's symptoms persist MRI of the bra in would be recommended.
[2020-12-21 10:37] LABS: ALT/SGPT 21 U/L (12-78); AST/SGOT 16 U/L (15-37); Albumin 3.8 g/dL (3.4-5.0); Alkaline Phosphatase 44 U/L (45-117); BUN Blood Urea Nitrogen 18 mg/dL (7-18); Bicarbonate 30 mmol/L (21-32); Bilirubin Direct 0.1 mg/dL (0-0.2); Bilirubin Total 0.5 mg/dL (0.2-1.0); Glucose Level 92 mg/dL (74-106); Magnesium 2.2 mg/dL (1.8-2.4); NT PRO-BNP 117 pg/mL (<450); Potassium 3.3 mmol/L (3.5-5.1); Protein, Total 6.9 g/dL (6.4-8.2); Sodium Level 145 mmol/L (136-145); Troponin (Emerg Dept Use Only) < 0.02 ng/mL (0.0-0.045)
[2020-12-21 10:42] LABS: Urine RBC <5 /HPF (NONE SEEN)
[2020-12-21 10:43] LABS: Urine Amorphous Sediment 2+ /HPF (NONE SEEN); Urine Bacteria <20 /HPF (<20)
[2020-12-21 10:48] LABS: Protime INR 1.1
[2020-12-21 11:02] LABS: Blood Morphology Comment NOT SEEN (NOT SEEN); Platelet Estimate ADEQ
--- NOTE | 2020-12-21 11:47 | EDPHYS ---
Physician Documentation [facility] Name: Maggie Durant Age: 80 yrs Sex: Female : 1940 Arrival Date: 12/21/2020 Time: 09:36 Bed 5 Private MD: ED Physician Melo Martinez HPI: 12/21 10:16 This 80 yrs old Female presents to ER via EMS with complaints of Probable jr8 Seizure. 10:16 Seizure onset: just prior to arrival. Context: the seizure(s) was witnessed, by family, jr8 occurred at home, occurred while the patient was lying down. Seizure Hx: the patient has no previous seizure history. Associated injury: The patient did not suffer any apparent associated injury. The patient has not experienced similar symptoms in the past. The patient has not recently seen a physician. of patient stated that the patient was laying down in her bed. He was in computer room and heard her gurgling. Stated that he went to check on her and saw patient clenched with generalized clonic activity. EMS stated that she was unresponsive upon there arrival in a postictal state. Patient currently on no meds and only history is late stage alzheimers . Historical: - Allergies: 09:48 No Known Allergies; em - PMHx: 09:48 Alzheimers; possible hyperglycemia; em - PSHx: 09:48 Hysterectomy; disc repair in lower back; em - Immunization history:: Adult Immunizations unknown. - Social history:: Smoking status: unknown. ROS: 10:16 Unable to obtain ROS due to baseline dementia. jr8 Exam: 10:16 Head/Face: Normocephalic, atraumatic. Eyes: Pupils equal round and reactive to light, jr8 extra-ocular motions intact. Lids and lashes normal. Conjunctiva and sclera are non-icteric and not injected. Cornea within normal limits. Periorbital areas with no swelling, redness, or edema. Neck: Trachea midline, no thyromegaly or masses palpated, and no cervical lymphadenopathy. Supple, full range of motion without nuchal rigidity, or vertebral point tenderness. No Meningismus. Cardiovascular: Bradycardic rate of 58 with a normal S1 and S2. No gallops, murmurs, or rubs. Normal PMI, no JVD. No pulse deficits. Respiratory: Lungs have equal breath sounds bilaterally, clear to auscultation and percussion. No rales, rhonchi or wheezes noted. No increased work of breathing, no retractions or nasal flaring. Abdomen/GI: Soft with normal bowel sounds. No distension. No grimace, crying, or screaming with palpation Skin: Warm, dry with decreased turgor. Normal color with no rashes, no lesions, and no evidence of cellulitis. MS/ Extremity: Pulses equal, no cyanosis. Neurovascular intact. Full, normal range of motion. 10:16 Neuro: Orientation: to person, Mentation: confused, Memory: unable to test, Cranial nerves: extraocular movements are intact, Facial palsy and sensory deficits are absent. Motor: moves all fours, Sensation: no obvious gross deficits, seizure activity, is not displayed by the patient, Abnormal movements: there are no abnormal movements. Vital Signs: 09:37 BP 140 / 89; Pulse 57; Resp 16; Pulse Ox 93% on R/A; em 10:39 Temp 97.8; em 11:00 BP 118 / 80; Pulse 61; Resp 18; Pulse Ox 95% on R/A; em 12:30 BP 110 / 80; Pulse 74; Resp 16; Pulse Ox 95% on R/A; em [place] Coma Score: 10:38 Eye Response: spontaneous(4). Verbal Response: confused(4). Motor Response: withdraws em from pain(4). Total: 12. MDM: 09:36 Patient medically screened. rust 11:42 Data reviewed: vital signs, nurses notes, lab test result(s), EKG, radiologic studies, rust CT scan, plain films. Data interpreted: Pulse oximetry: on room air is 93 %. Interpretation: acceptable. Counseling: I had a detailed discussion with the patient and/or guardian regarding: the historical points, exam findings, and any diagnostic results supporting the discharge/admit diagnosis, lab results, radiology results, the need for outpatient follow up, a neurologist, to return to the emergency department if symptoms worsen or persist or if there are any questions or concerns that arise at home. ED course: Detailed discussion with family about presumed seizure episode. Likely from advanced alzheimers disease process. Still would need to f/u with Dr. Wilkerson for further evaluation. In the meantime will start her on antiepileptic per Dr. Wilkerson. Family good with this and wants to bring her home for the time being . 12/21 09:37 Order name: Basic Metabolic Panel; Complete Time: 10:42 12/21 09:37 Order name: CBC with Diff; Complete Time: 11:04 12/21 09:37 Order name: LFT's; Complete Time: 10:42 12/21 09:37 Order name: Magnesium; Complete Time: 10:42 12/21 09:37 Order name: NT PRO-BNP; Complete Time: 10:42 12/21 09:37 Order name: PT-INR; Complete Time: 11:12/21 09:37 Order name: Troponin (emerg Dept Use Only); Complete Time: 10:42 12/21 09:37 Order name: XRAY Chest (1 view); Complete Time: 10:31 12/21 09:37 Order name: CT Head Brain wo Cont; Complete Time: 10:31 12/21 09:37 Order name: Urine Microscopic Only; Complete Time: 11:04 12/21 10:12 Order name: Urine Dipstick-Ancillary; Complete Time: 10:15 EDMS 12/21 10:45 Order name: Urine Culture EDMS 12/21 11:02 Order name: Manual Differential; Complete Time: 11:04 EDMS 12/21 09:37 Order name: EKG; Complete Time: 09:38 12/21 09:37 Order name: Cardiac monitoring; Complete Time: 09:50 12/21 09:37 Order name: EKG - Nurse/Tech; Complete Time: 13:25 12/21 09:37 Order name: IV Saline Lock; Complete Time: 09:50 12/21 09:37 Order name: Labs collected and sent; Complete Time: 09:50 12/21 09:37 Order name: O2 Per Protocol; Complete Time: 09:50 12/21 09:37 Order name: O2 Sat Monitoring; Complete Time: 09:50 12/21 09:37 Order name: Urine Dipstick-Ancillary (obtain specimen); Complete Time: 13:25 jr Administered Medications: 12:01 Drug: Keppra (levETIRAcetam) 500 mg Route: IV; Rate: calculated rate; Site: right tr6 antecubital; 12:30 Follow up: Response: No adverse reaction; IV Status: Completed infusion; IV Intake: em 100ml Disposition: 16:49 Co-signature as Attending Physician, Melo Martinez MD I agree with the assessment and kdr plan of care. Disposition: 12/21/20 11:47 Discharged to Home. Impression: Seizure . - Condition is Stable. - Discharge Instructions: Seizure, Adult. - Prescriptions for Keppra 100 mg/mL Oral solution - take 2.5 milliliter by ORAL route 2 times per day; 100 milliliter. - Medication Reconciliation Form, Thank You Letter, Antibiotic Education, Prescription Opioid Use form. - Follow up: Alton Wilkerson MD; When: 2 - 3 days; Reason: Recheck today's complaints, Continuance of care, Re-evaluation by your physician. - Problem is new. - Symptoms are resolved. Signatures: Dispatcher [employer] EDMN Melo Martinez MD MD [facility] Mansoor Hall RN RN Ahmet Lynn PA PA jr8 Shavonne Pittman RN RN tr6 Corrections: (The following items were deleted from the chart) 13:26 11:47 12/21/2020 11:47 Discharged to Home. Impression: Seizure . Condition is Stable. em Forms are Medication Reconciliation Form, Thank You Letter, Antibiotic Education, Prescription Opioid Use. Follow up: Alton Wilkerson; When: 2 - 3 days; Reason: Recheck today's complaints, Continuance of care, Re-evaluation by your physician. Problem is new. Symptoms are resolved. jr8
--- NOTE | 2020-12-21 11:47 | ER ---
Nurse's Notes [facility] Name: Maggie Durant Age: 80 yrs Sex: Female : 1940 Arrival Date: 12/21/2020 Time: 09:36 Bed 5 Private MD: Diagnosis: Seizure Presentation: 12/21 09:37 Chief complaint: EMS states: called out for seizure like activity noticed at 0815, em states she clinched her arms and then went unresponsive, unknown Sz time, BGL 118, pt A\T\O x 0 which is baseline according to , hx of severe dementia, 20 G R FA. Coronavirus screen: Client denies travel out of the [place] in the last 14 days. Ebola Screen: Patient negative for fever greater than or equal to 101.5 degrees Fahrenheit, and additional compatible Ebola Virus Disease symptoms Patient denies exposure to infectious person. Patient denies travel to an Ebola-affected area in the 21 days before illness onset. No symptoms or risks identified at this time. Initial Sepsis Screen: Does the patient meet any 2 criteria? Altered Mental Status. Yes Does the patient have a suspected source of infection? No. Patient's initial sepsis screen is negative. Risk Assessment: Do you want to hurt yourself or someone else? Unable to obtain. Onset of symptoms. 09:37 Method Of Arrival: EMS: [facility] em 09:37 Acuity: LUIS ALBERTO 2 em Historical: - Allergies: 09:48 No Known Allergies; em - PMHx: 09:48 Alzheimers; possible hyperglycemia; em - PSHx: 09:48 Hysterectomy; disc repair in lower back; em - Immunization history:: Adult Immunizations unknown. - Social history:: Smoking status: unknown. Screenin:37 Abuse screen: no apparent signs noted. Nutritional screening: No deficits noted. em Tuberculosis screening: No symptoms or risk factors identified. Fall Risk None identified. Assessment: 09:37 General: Appears slender, well groomed, well developed, Behavior is inappropriate for em age, restless. Pain: Unable to use pain scale. Does not appear to understand pain scale. Neuro: Level of Consciousness is awake, confused, Oriented to none. Cardiovascular: Capillary refill < 3 seconds Patient's skin is warm and dry. Rhythm is sinus rhythm. Respiratory: Airway is patent Respiratory effort is even, unlabored, Respiratory pattern is regular, symmetrical. Derm: Skin is intact, is thin, Skin is pink, warm \T\ dry. Musculoskeletal: Capillary refill < 3 seconds, Range of motion: intact in all extremities. 10:00 Reassessment: No changes from previously documented assessment. at bedside em states seizure lasted about 30-60 seconds. 10:15 Reassessment: pt transported to CT. tr6 11:14 Reassessment: No changes from previously documented assessment. em 12:30 Reassessment: Patient appears in no apparent distress at this time. No changes from em previously documented assessment. 13:15 Reassessment: assisted pt into wheelchair, tolerated well, wheeled out to vehicle by em and daughter. Vital Signs: 09:37 BP 140 / 89; Pulse 57; Resp 16; Pulse Ox 93% on R/A; em 10:39 Temp 97.8; em 11:00 BP 118 / 80; Pulse 61; Resp 18; Pulse Ox 95% on R/A; em 12:30 BP 110 / 80; Pulse 74; Resp 16; Pulse Ox 95% on R/A; em [place] Coma Score: 10:38 Eye Response: spontaneous(4). Verbal Response: confused(4). Motor Response: withdraws em from pain(4). Total: 12. ED Course: 09:36 Patient arrived in ED. am2 09:36 Ahmet Lynn PA is PHCP. jr8 09:36 Melo Martinez MD is Attending Physician. jr8 09:38 Fall risk band placed. Placed in gown. Side rails up X2. Adult w/ patient. Seizure em precautions initiated. monitoring specialist on. Pulse ox on. NIBP on. 09:38 Maintain EMS IV. Dressing intact. Good blood return noted. Site clean \T\ dry. Gauge \T\ em site: 20 R FA. 09:47 Triage completed. em 09:48 Arm band placed on. em 09:50 Mansoor Hall RN is Primary Nurse. em 10:00 Inserted saline lock: 20 gauge in right antecubital area, using aseptic technique. kj1 Blood collected. 10:05 Radiology exam delayed due to pt not ready, nurse to call. ag6 10:05 Initial lab(s) drawn, by me, sent to lab. Urine collected: Keys catheter specimen, kj1 clear. 10:19 CT Head Brain wo Cont In Process Unspecified. EDMS 10:20 XRAY Chest (1 view) In Process Unspecified. EDMS 11:45 Alton Wilkerson MD is Referral Physician. jr8 13:22 No provider procedures requiring assistance completed. IV discontinued, intact, em bleeding controlled, No redness/swelling at site. Pressure dressing applied. Administered Medications: 12:01 Drug: Keppra (levETIRAcetam) 500 mg Route: IV; Rate: calculated rate; Site: right tr6 antecubital; 12:30 Follow up: Response: No adverse reaction; IV Status: Completed infusion; IV Intake: em 100ml Intake: 12:30 IV: 100ml; Total: 100ml. em Outcome: 11:47 Discharge ordered by . jr8 13:22 Discharged to home via wheelchair, with family. em 13:22 Condition: stable 13:22 Discharge instructions given to patient, Instructed on discharge instructions, follow up and referral plans. Demonstrated understanding of instructions, follow-up care. 13:26 Patient left the ED. em Signatures: Dispatcher [employer] Mansoor Dumont, RN RN em Ahmet Lynn PA PA jr8 Janiya Ohara am2 Sandrine Schmidt kj1 Hannah Smyth 6 Shavonne Pittman, RN RN tr6
[2020-12-21] MEDS ORDERED: levETIRAcetam 500 MG in NA CHLORIDE 0.9% 100 ML IV ONE (12:00)
[2020-12-21] MEDS ORDERED: NA CHLORIDE 0.9% 50 ML ONE (12:10)
[2020-12-21] MEDS ORDERED: LEVETIRACETAM 500 MG/5 ML VIAL IV ONE (12:10)
[2020-12-21] MEDS ORDERED: INSULIN -REGULAR HUMAN 50 UNIT/0.5 ML ML ONE (12:14)
[2020-12-21 13:41] VITALS: TEMP 97.8
[2020-12-21 13:43] VITALS: O2SAT 95
[2020-12-21 13:45] VITALS: BP 110/80
== END 2020-12-21 13:26 | disposition home or self-care (01) ==
LOC: ER 09:35
DX: R56.9 Unspecified convulsions (principal); G30.9 Alzheimer's disease, unspecified; F02.80 Dementia in other diseases classified elsewhere, unspecified severity, without behavioral disturbance, psychotic disturbance, mood disturbance, and anxiety
CPT/HCPCS: 96365; 93005; 87088; 85025; 87086; 80048; 36415; 83735; 85610; 80076; 84484; 83880; 70450; 71045; 99284; J1953; 81003; 81015

== ENCOUNTER 2021-04-10 05:21 | Inpatient (IN) | payer OTHER ==
[2021-04-10 06:22] LABS: Urine Blood Trace-intact (Negative); Urine Glucose Negative (Negative); Urine Protein 1+ (Negative); Urine Specific Gravity 1.025 (1.005-1.030)
[2021-04-10] MEDS ORDERED: NA CHLORIDE 0.9% 1,000 ML ONE (07:11)
[2021-04-10] MEDS ORDERED: NA CHLORIDE 0.9% 500 ML ONE (07:11)
--- NOTE | 2021-04-10 07:30 | EDPHYS ---
Physician Documentation [facility] Name: Maggie Durant Age: 80 yrs Sex: Female : 1940 Arrival Date: 04/10/2021 Time: 05:33 Bed 23 Private MD: CARLA Physician Bentley Rhodes HPI: 04/10 07:18 This 80 yrs old Female presents to ER via EMS with complaints of FALL, HIT darrel HEAD , HAD SEIZURE, HX OF SZ. 07:18 The patient or guardian reports pain, swelling, tenderness. The complaints affect the [facility] left frontal area and left side of the back of head. Context of injury: The problem was sustained at home, resulted from a fall. Onset: The symptoms/episode began/occurred just prior to arrival. Associated signs and symptoms: Loss of consciousness: This patient did not experience any loss of consciousness. Pertinent positives: generalized weakness. WEAK, NOT ABLE TO TALK COHERENTLY . The patient presents with confusion, trouble concentrating. Onset: The symptoms/episode began/occurred this morning. Possible causes: CVA or TIA, head injury, low blood sugar, seizure. Character of seizure(s): Loss of consciousness: the patient experienced loss of consciousness, Motor activity: generalized, Incontinence: none, Apnea: the patient did not experience apnea, Circulation: the patient did not experience evidence of pulse disturbance. Historical: - Allergies: 06:17 No Known Allergies; wr - Immunization history:: Adult Immunizations not up to date. - Social history:: Smoking status: Patient denies any tobacco usage or history of. - Family history:: not pertinent. ROS: 07:18 Constitutional: Negative for fever, chills, and weight loss, Eyes: Negative for injury, darrel pain, redness, and discharge, ENT: Negative for injury, pain, and discharge, Neck: Negative for injury, pain, and swelling, Cardiovascular: Negative for chest pain, palpitations, and edema, Respiratory: Negative for shortness of breath, cough, wheezing, and pleuritic chest pain, Abdomen/GI: Negative for abdominal pain, nausea, vomiting, diarrhea, and constipation, Back: Negative for injury and pain, : Negative for injury, bleeding, discharge, and swelling, MS/Extremity: Negative for injury and deformity, Skin: Negative for injury, rash, and discoloration, Psych: Negative for depression, anxiety, suicide ideation, homicidal ideation, and hallucinations, Allergy/Immunology: Negative for hives, rash, and allergies, Endocrine: Negative for neck swelling, polydipsia, polyuria, polyphagia, and marked weight changes, Hematologic/Lymphatic: Negative for swollen nodes, abnormal bleeding, and unusual bruising. 07:18 Neuro: Positive for altered mental status, near syncope, weakness. Exam: 07:18 Constitutional: This is a well developed, well nourished patient who is awake, alert, darrel and in no acute distress. Eyes: Pupils equal round and reactive to light, extra-ocular motions intact. Lids and lashes normal. Conjunctiva and sclera are non-icteric and not injected. Cornea within normal limits. Periorbital areas with no swelling, redness, or edema. ENT: Nares patent. No nasal discharge, no septal abnormalities noted. Tympanic membranes are normal and external auditory canals are clear. Oropharynx with no redness, swelling, or masses, exudates, or evidence of obstruction, uvula midline. Mucous membranes moist. Neck: Trachea midline, no thyromegaly or masses palpated, and no cervical lymphadenopathy. Supple, full range of motion without nuchal rigidity, or vertebral point tenderness. No Meningismus. Chest/axilla: Normal chest wall appearance and motion. Nontender with no deformity. No lesions are appreciated. Respiratory: Lungs have equal breath sounds bilaterally, clear to auscultation and percussion. No rales, rhonchi or wheezes noted. No increased work of breathing, no retractions or nasal flaring. Abdomen/GI: Soft, non-tender, with normal bowel sounds. No distension or tympany. No guarding or rebound. No evidence of tenderness throughout. Back: No spinal tenderness. No costovertebral tenderness. Full range of motion. Skin: Warm, dry with normal turgor. Normal color with no rashes, no lesions, and no evidence of cellulitis. Neuro: Awake and alert, GCS 15, oriented to person, place, time, and situation. Cranial nerves II-XII grossly intact. Motor strength 5/5 in all extremities. Sensory grossly intact. Cerebellar exam normal. Normal gait. Psych: Awake, alert, with orientation to person, place and time. Behavior, mood, and affect are within normal limits. 07:18 Head/face: Noted is contusion, hematoma, that is moderate, of the left frontal area, left side of the back of head, left temporal area and left occipital area. 07:18 Eyes: Periorbital structures: no acute changes, Pupils: no acute changes, equal, round, and reactive to light and accomodation, Extraocular movements: intact throughout, Conjunctiva: normal, no acute changes, Corneas: are normal, no acute changes, Sclera: no appreciated abnormality, no acute changes, Anterior chamber: normal, no acute changes. 07:18 Cardiovascular: Rate: bradycardic, Rhythm: irregularly irregular, Pulses: Pulses are 4+ in bilateral radial, brachial, femoral, popliteal, posterior tibial and and dorsalis pedis arteries.. Heart sounds: murmur, crescendo, grade 2 over 6, Edema: is not appreciated, JVD: is not appreciated. 07:18 ECG was reviewed by the Attending Physician. 07:18 Neuro: Orientation: unable to test, Mentation: confused, Memory: unable to test, Cranial nerves: grossly normal, is grossly normal based on the patient's age, Cerebellar function: is grossly normal, is grossly normal based on the patient's age, Motor: no acute changes, moves all fours, strength is normal, Sensation: unable to test, Gait: not applicable not tested. seizure activity, is not displayed by the patient. Vital Signs: 06:10 BP 147 / 110; Pulse 65; Resp 12; Temp 97.8; Pulse Ox 98% ; Weight 42.64 kg; Height 5 wr ft. 6 in. (167.64 cm); 06:19 BP 147 / 110; Pulse 65; Resp 12; Temp 97.8; Pulse Ox 98% ; Weight 42.64 kg; Height 5 wr ft. 6 in. (167.64 cm); 08:23 BP 113 / 81; Pulse 54; Resp 18; Temp 96.9; Pulse Ox 98% ; wr 06:19 Body Mass Index 15.17 (42.64 kg, 167.64 cm) wr Torres Coma Score: 07:30 Eye Response: to voice(3). Verbal Response: confused(4). Motor Response: localizes darrel pain(5). Total: 12. MDM: 05:38 Patient medically screened. darrel 07:30 Differential diagnosis: Contusion of Hematoma on Intracranial bleed- Concussion without darrel LOC. cerebral contusion. Differential Diagnosis altered mental status. Differential Diagnosis: CVA, electrolyte abnormality, hypoglycemia, intracranial bleed, pneumonia, UTI, cerebral vascular accident, cardiac arrhythmia, seizure, TIA. Data reviewed: vital signs, nurses notes, lab test result(s), EKG, radiologic studies, CT scan, plain films. Data interpreted: material analyst: rate is 65 beats/min, rhythm is atrial fibrillation, Pulse oximetry: on room air is 65 %. Test interpretation: by ED physician or midlevel provider: ECG, plain radiologic studies. Counseling: I had a detailed discussion with the patient and/or guardian regarding: the historical points, exam findings, and any diagnostic results supporting the discharge/admit diagnosis, lab results, radiology results. 04/10 05:38 Order name: Basic Metabolic Panel [facility] 04/10 05:38 Order name: CBC with Diff; Complete Time: 10:16 [facility] 04/10 10:17 Interpretation: Normal except: RBC 3.38; HGB 10.9; HCT 32.0; THERESA% 77.3; LYM% 15.0. 04/10 05:38 Order name: LFT's; Complete Time: 10:16 [facility] 04/10 10:18 Interpretation: Reviewed. 04/10 05:38 Order name: Magnesium; Complete Time: 10:16 [facility] 04/10 05:38 Order name: NT PRO-BNP; Complete Time: 10:16 [facility] 04/10 05:38 Order name: PT-INR; Complete Time: 10:16 [facility] 04/10 05:38 Order name: Troponin (emerg Dept Use Only); Complete Time: 10:16 [facility] 04/10 10:17 Interpretation: Reviewed. 04/10 05:38 Order name: Urine Culture [facility] 04/10 05:38 Order name: Basic Metabolic Panel; Complete Time: 10:16 EDMS 04/10 10:17 Interpretation: Normal except: CL 110; GLUC 127; CRE 0.50. cp 04/10 05:40 Order name: Glucose, Ancillary Testing; Complete Time: 06:53 EDMS 04/10 05:45 Order name: TSH; Complete Time: 10:16 bb 04/10 06:21 Order name: Urine Dipstick-Ancillary; Complete Time: 06:53 EDMS 04/10 10:17 Interpretation: Normal except: UBLD Trace-intact; UPROT 1+; UESTR 1+. cp 04/10 07:37 Order name: SARS-COV-2 RT PCR; Complete Time: 10:16 EDMD 04/10 05:38 Order name: XRAY Chest (1 view); Complete Time: 10:16 [facility] 04/10 05:38 Order name: CT Traumagram (Head C Spine CAP wo con) [facility] 04/10 10:03 Order name: Protime (+INR) EDMD 04/10 10:03 Order name: T4 Free EDMD 04/10 10:03 Order name: Troponin I EDMD 04/10 10:03 Order name: Basic Metabolic Panel EDMD 04/10 10:03 Order name: Basic Metabolic Panel EDMD 04/10 10:03 Order name: Thyroid Stimulating Hormone EDMD 04/10 10:03 Order name: CBC with Automated Diff EDMD 04/10 10:03 Order name: CBC with Automated Diff [facility] 04/10 10:03 Order name: Urinalysis [facility] 04/10 10:04 Order name: Lipid Profile [facility] 04/10 10:04 Order name: Hemoglobin A1c [facility] 04/10 05:38 Order name: EKG; Complete Time: 05:38 [facility] 04/10 05:38 Order name: Cardiac monitoring; Complete Time: 06:13 [facility] 04/10 05:38 Order name: EKG - Nurse/Tech; Complete Time: 06:45 [facility] 04/10 05:38 Order name: IV Saline Lock; Complete Time: 06:13 [facility] 04/10 05:38 Order name: Labs collected and sent; Complete Time: 06:46 [facility] 04/10 05:38 Order name: O2 Per Protocol; Complete Time: 05:43 [facility] 04/10 05:38 Order name: O2 Sat Monitoring; Complete Time: 05:43 [facility] 04/10 05:38 Order name: Urine Dipstick-Ancillary (obtain specimen); Complete Time: 07:12 [facility] 04/10 05:38 Order name: Seizure Precautions; Complete Time: 06:25 [facility] 04/10 10:03 Order name: Heart Healthy EDMS EC:18 Rate is 65 beats/min. Rhythm is regular. QRS [place] is Normal. RI interval is normal. QRS darrel interval is normal. QT interval is normal. No Q waves. T waves are Normal. No ST changes noted. Clinical impression: Sinus bradycardia. Interpreted by me. Reviewed by me. Administered Medications: 06:49 Drug: NS 0.9% 500 ml Route: IV; Rate: bolus; Site: left forearm; wr 07:11 Drug: NS 0.9% 1000 ml Route: IV; Rate: 125 ml/hr; Site: left forearm; wr 07:40 Drug: Rocephin (cefTRIAXone) 1 grams Route: IV; Rate: per protocol; Site: right wr antecubital; 09:21 Drug: Keppra (levETIRAcetam) 1000 mg Route: IV; Rate: per protocol; Site: left wr antecubital; Disposition Summary: 04/10/21 07:30 Hospitalization Ordered Hospitalization Status: Inpatient Admission darrel Provider: Teresita Mcmillan cha Condition: Stable darrel Problem: new darrel Symptoms: have improved darrel Bed/Room Type: Standard darrel Location: [facility] ER HOLD(04/10/21 15:02) Room Assignment: ERHOLD-(04/10/21 15:02) ss Diagnosis - Fall on same level, unspecified darrel - Unspecified injury of head, initial encounter darrel - Other seizures darrel - UTI/ Urinary tract infection, site not specified darrel - Persistent atrial fibrillation - NEW ONSET darrel - Dementia in other diseases classified elsewhere with behavioral disturbance darrel Forms: - Medication Reconciliation Form darrel - SBAR form darrel Signatures: Dispatcher [employer] EDMS Bentley Rhodes MD MD cha Smirch, Shelby, RN RN Bentley Cedillo PA PA Mariela Jewell Corrections: (The following items were deleted from the chart) 06:17 06:16 PMHx: Alzheimers; 06:17 06:16 PMHx: possible hyperglycemia; [facility] 06:46 05:38 CORONAVIRUS+MRARLENE.BRZ ordered. EDMD EDMS 15:02 07:30 Telemetry/MedSurg (Inpatient) darrel ss 15:02 07:30 darrel ss
--- NOTE | 2021-04-10 07:30 | ER ---
Nurse's Notes [facility] Name: Maggie Durant Age: 80 yrs Sex: Female : 1940 Arrival Date: 04/10/2021 Time: 05:33 Bed 23 Private MD: Diagnosis: Fall on same level, unspecified;Unspecified injury of head, initial encounter;Other seizures;UTI/ Urinary tract infection, site not specified;Persistent atrial fibrillation-NEW ONSET;Dementia in other diseases classified elsewhere with behavioral disturbance Presentation: 04/10 06:05 Chief complaint: EMS states: Fall, Hematoma on back side of her head,Seizure. Hx of wr Seizures but do not take any kind of medication. Coronavirus screen: unknown due to mental ststus. Ebola Screen: Unable to complete the Ebola screening because: The patient does not understand the questions being asked. 06:05 Method Of Arrival: EMS wr 06:14 Initial Sepsis Screen: Does the patient meet any 2 criteria? No. Patient's initial wr sepsis screen is negative. Does the patient have a suspected source of infection? No. Patient's initial sepsis screen is negative. Risk Assessment: Do you want to hurt yourself or someone else? Patient reports no desire to harm self or others. Onset of symptoms. Onset of symptoms. 06:14 Acuity: Unassigned wr 07:00 Acuity: LUIS ALBERTO 3 ss Triage Assessment: 06:18 General: Appears uncomfortable, unkempt, malnourished. wr 06:19 General: Behavior is agitated, anxious. Pain: Denies pain. wr Historical: - Allergies: 06:17 No Known Allergies; wr - Immunization history:: Adult Immunizations not up to date. - Social history:: Smoking status: Patient denies any tobacco usage or history of. - Family history:: not pertinent. Screenin:22 Abuse screen: Denies per . Patient have dementia. Nutritional screening: No wr deficits noted. Tuberculosis screening: No symptoms or risk factors identified. 08:23 Fall Risk Fall in past 12 months (25 points). wr Assessment: 06:21 Reassessment: Patient denies pain at this time. Patient states symptoms have not wr improved. 08:23 Reassessment: Patient appears in no apparent distress at this time. Patient and/or wr family updated on plan of care and expected duration. Pain level reassessed. Patient is alert, oriented x 3, equal unlabored respirations, skin warm/dry/pink. 08:23 General: Appears in no apparent distress. comfortable, slender, Behavior is Received wr patient confused with son \T\ bedside. NAD noted. Respirations even and unlabored, skin warm and dry to touch. Multiple bruises and abrasion observed on bilateral upper extremities; reports Hx of multiple falls R/T Alzheimer's diagnoses. \T\ bedside. Patient awaiting a bed assignment. Nursing staff will continue to monitor.. Cardiovascular: Rhythm is sinus bradycardia HR 54. Vital Signs: 06:10 BP 147 / 110; Pulse 65; Resp 12; Temp 97.8; Pulse Ox 98% ; Weight 42.64 kg; Height 5 wr ft. 6 in. (167.64 cm); 06:19 BP 147 / 110; Pulse 65; Resp 12; Temp 97.8; Pulse Ox 98% ; Weight 42.64 kg; Height 5 wr ft. 6 in. (167.64 cm); 08:23 BP 113 / 81; Pulse 54; Resp 18; Temp 96.9; Pulse Ox 98% ; wr 06:19 Body Mass Index 15.17 (42.64 kg, 167.64 cm) wr Torres Coma Score: 07:30 Eye Response: to voice(3). Verbal Response: confused(4). Motor Response: localizes darrel pain(5). Total: 12. ED Course: 05:33 Patient arrived in ED. mw2 05:34 Bentley Rhodes MD is Attending Physician. darrel 06:13 XRAY Chest (1 view) Sent. cc4 06:16 Triage completed. wr 06:16 Inserted saline lock: 20 gauge in left forearm, using aseptic technique. cc4 06:21 Arm band placed on. EKG completed in triage. Results shown to MD. wr 06:23 XRAY Chest (1 view) In Process Unspecified. EDMS 06:31 CT Traumagram (Head C Spine CAP wo con) In Process Unspecified. EDMS 07:11 Basic Metabolic Panel Sent. wr 07:12 Urine Culture Sent. wr 07:28 Teresita Mcmillan MD is Hospitalizing Provider. darrel 07:30 Mariela Jules is Primary Nurse. wr 08:23 No apparent distress. Resting quietly. wr 08:23 No provider procedures requiring assistance completed. IV is patent, is intact. wr 08:23 Patient has correct armband on for positive identification. wr Administered Medications: 06:49 Drug: NS 0.9% 500 ml Route: IV; Rate: bolus; Site: left forearm; wr 07:11 Drug: NS 0.9% 1000 ml Route: IV; Rate: 125 ml/hr; Site: left forearm; wr 07:40 Drug: Rocephin (cefTRIAXone) 1 grams Route: IV; Rate: per protocol; Site: right wr antecubital; 09:21 Drug: Keppra (levETIRAcetam) 1000 mg Route: IV; Rate: per protocol; Site: left wr antecubital; Outcome: 07:30 Decision to Hospitalize by Provider. [facility] 15:52 Patient left the ED. Signatures: Dispatcher [employer] EDBentley Rangel MD MD cha Smirch, Shelby, RN RN Juana, Erick [email or web address] Noemi [id number] Mariela Jules Corrections: (The following items were deleted from the chart) 06:17 06:16 PMHx: Alzheimers; wr wr 06:17 06:16 PMHx: possible hyperglycemia; wr
[2021-04-10] MEDS ORDERED: levETIRAcetam 1,000 MG in NA CHLORIDE 0.9% 100 ML IV ONE (07:45)
[2021-04-10 07:49] LABS: Absolute Lymphocytes (CBC) 0.9 K/uL (0.7-4.9); Basophils % 0.6 % (0-1.3); MPV 7.8 fL (7.6-11.3); RBC Red Blood Cell Count 3.38 M/uL (3.86-4.86)
[2021-04-10 07:50] LABS: Protime INR 1.07
--- NOTE | 2021-04-10 07:53 | RAD REPORT ---
EXAM DESCRIPTION: Shantel Single View04/10/2021 6:23 am CLINICAL HISTORY: Chest pain COMPARISON: December 2020 FINDINGS: The lungs appear clear of acute infiltrate. The heart is mildly enlarged IMPRESSION: No acute abnormalities displayed
[2021-04-10] MEDS ORDERED: CEFTRIAXONE/SWI 1gm 1 GM/10 ML SYR ONE (08:02)
[2021-04-10 08:14] LABS: ALT/SGPT 23 U/L (12-78); AST/SGOT 17 U/L (15-37); Albumin 3.5 g/dL (3.4-5.0); Alkaline Phosphatase 55 U/L (45-117); BUN Blood Urea Nitrogen 18 mg/dL (7-18); Bicarbonate 27 mmol/L (21-32); Bilirubin Direct 0.1 mg/dL (0-0.2); Bilirubin Total 0.3 mg/dL (0.2-1.0); Glucose Level 127 mg/dL (74-106); Magnesium 2.1 mg/dL (1.8-2.4); NT PRO-BNP 207 pg/mL (<450); Potassium 4.1 mmol/L (3.5-5.1); Protein, Total 6.8 g/dL (6.4-8.2); Sodium Level 144 mmol/L (136-145); Troponin (Emerg Dept Use Only) < 0.02 ng/mL (0.0-0.045)
[2021-04-10] MEDS ORDERED: POTASSIUM CL SA 10 MEQ TAB PO ONE (09:22)
[2021-04-10] MEDS ORDERED: ACETAMINOPHEN 500 MG TAB PO PRN (10:02)
[2021-04-10] MEDS ORDERED: ONDANSETRON 4 MG/2 ML VIAL IV PRN (10:02)
[2021-04-10] MEDS ORDERED: HYDROCODONE/APAP 5/325 MG TAB PO PRN (10:07)
--- NOTE | 2021-04-10 10:08 | P.HP ---
Patient History Date of Service: 04/10/21 Allergies No Known Drug Allergies Allergy (Verified 07/26/20 21:26) Unknown No Known Allergies Allergy (Uncoded 12/25/17 19:12) Unknown Home Medications: Cefpodoxime Proxetil 100 mg PO BID #10 tablet 08/01/20 Ensure Enlive 237 ml PO BID #60 can 08/01/20 - Past Medical/Surgical History Diabetic: No -: alzheimers -: GERD -: UTI -: hysterectomy -: back surgery -: nodule removal from back - Family History Father -: Diabetes, Kidney disease Mother Notes: dementia Brother -: Diabetes, Cancer Notes: alzheimers Sister -: Stroke - Social History Alcohol use: No CD- Drugs: No Caffeine use: Yes Physical Examination - Studies Laboratory Data (last 24 hrs) 04/10/21 07:30: PT 12.3, INR 1.07 04/10/21 07:30: WBC 5.80, Hgb 10.9 L, Hct 32.0 L, Plt Count 274 04/10/21 07:30: Sodium 144, Potassium 4.1, BUN 18, Creatinine 0.50 L, Glucose 127 H, Magnesium 2.1, Total Bilirubin 0.3, AST 17, ALT 23, Alkaline Phosphatase 55 Assessment and Plan - Advance Directives Does patient have a Living Will: No Does patient have a Durable POA for Healthcare: No
--- NOTE | 2021-04-10 10:22 | EKG ---
Test Date: 2021-04-10 Test Time: 05:44:00 Receiving Weigher: CLIVE MEASUREMENT RESULTS: Intervals: Rate: 65 NE: QRSD: 134 QT: 424 QTc: 440 [place]: P: NE: QRS: -82 T: -22 INTERPRETIVE STATEMENTS: Atrial fibrillation Left axis deviation Right bundle branch block Abnormal ECG Compared to ECG 12/21/2020 13:03:55 Left-axis deviation now present Sinus rhythm no longer present Atrial premature complex(es) no longer present Left anterior fascicular block no longer present Bifascicular block no longer present Myocardial infarct finding no longer present Electronically Signed On 04-10-21 10:21:38 CDT by Jere Peralta
--- NOTE | 2021-04-10 10:30 | RAD REPORT ---
EXAM DESCRIPTION: CT - Head C Spine Cap Wo Con - 04/10/2021 7:39 am CLINICAL HISTORY: The patient is 80 years old and is Female; Pain;Swelling TECHNIQUE: Axial computed tomography images of the head/brain and cervical spine without intravenous contrast. Sagittal and coronal reformatted images were created and reviewed. This CT exam was pe rformed using one or more of the following dose reduction techniques: automated exposure control, a djustment of the mA and/or kV according to patient size, and/or use of iterative reconstruction techn ique. COMPARISON: CT head December 21, 2020. FINDINGS: Brain: Moderate nonspecific white matter changes likely related to chronic microvascular ischemic disease. Mild to moderate cerebral atrophy. No hemorrhage. Ventricles: Mild ventricular prominence. Skull: No acute fracture. Sinuses: Unremarkable as visualized. No acute sinusitis. Mastoid air cells: Unremarkable as visualized. No mastoid effusion. Vertebrae: No acute cervical spine fracture or subluxation. Sclerotic changes around the left transverse foramen at C3. Minimal anterolisthesis of C7 on T1. 5 mm lucent lesion in the upper C7 vertebral body. Discs/spinal canal/neural foramina: Disc osteophyte complex at C3-4 with moderate to severe spin al canal narrowing. Disc space narrowing with degenerative endplate changes from C4-5 through C6-7. Moderate right neural foraminal narrowing at C3-C4. Moderate bilateral neural foraminal narrowing at C4-C5. Moderate bilateral neural foraminal narrowing at C5-C6. Disc osteophyte complex at C5-C6. Moderate right and severe left neural foraminal narrowing at C6-C7. Disc osteophyte complex with moderate spinal canal narrowing at C6-C7. Soft tissues: Left scalp swelling. * A single impression for all exams can be found at the end of this report CT Chest, Abdomen and Pelvis Without Intravenous Contrast CLINICAL HISTORY: The patient is 80 years old and is Female; Pain;Swelling TECHNIQUE: Axial computed tomography images of the chest, abdomen and pelvis without intravenous con trast. Sagittal and coronal reformatted images were created and reviewed. This CT exam was perfor med using one or more of the following dose reduction techniques: automated exposure control, adjus tment of the mA and/or kV according to patient size, and/or use of iterative reconstruction technique . COMPARISON: No relevant prior studies available. FINDINGS: CHEST: Lungs: Scattered groundglass changes in the dependent lungs bilaterally which may be due to atel ectasis or airspace disease. Pleural space: Unremarkable. No significant effusion. No pneumothorax. Heart: Unremarkable. No cardiomegaly. No significant pericardial effusion. ABDOMEN: Liver: Unremarkable. Gallbladder and bile ducts: Suggestion of possible gallbladder wall thickening. No calcified stones. No ductal dilation. Pancreas: Unremarkable. No ductal dilation. Spleen: Unremarkable. No splenomegaly. Adrenals: Unremarkable. No mass. Kidneys and ureters: Simple cyst in the upper left kidney. ACR White Paper guidelines (Herclaire, et al. JACR 2018; 15(2):264-273) suggest no follow-up is necessary. There may be a 7 mm hemorrhagic or proteinaceous cyst in the lower left kidney. No obstructing stones. No hydronephrosis. Stomach and bowel: No obstruction. No mucosal thickening. Scattered colonic diverticula. PELVIS: Appendix: No findings to suggest acute appendicitis. Bladder: Unremarkable. No stones. Reproductive: Unremarkable as visualized. CHEST, ABDOMEN and PELVIS: Intraperitoneal space: Unremarkable. No significant fluid collection. No free air. Bones/joints: Heterogeneous appearance to the T7 vertebral body with mild central vertebral body height loss. Sclerotic foci in the L2 vertebral body. Possible cortical irregularity/discontinuity involving the upper sternal body. Left hip arthroplasty with related artifact limiting evaluation of the lower pelvis. Multilevel disc space narrowing with degenerative endplate changes in the thoracolumbar spin e. Minimal anterolisthesis of L4 on L5. Multiple calcified disc bulges in the spine. Old fracture of the right inferior pubic ramus. No dislocation. Soft tissues: Unremarkable. Vasculature: Prominence of the upper abdominal aorta which measures up to 3 cm in diameter. Scattered atherosclerotic vascular calcifications. No aortic aneurysm. Lymph nodes: Unremarkable. No enlarged lymph nodes. * A single impression for all exams can be found at the end of this report IMPRESSION: CT Head and Cervical Spine Without Intravenous Contrast: 1. No acute cervical spine fracture or subluxation. 2. Moderate to severe degenerative changes as described above. CT Chest, Abdomen and Pelvis Without Intravenous Contrast: 1. Scattered groundglass changes in the dependent lungs bilaterally which may be due to atelectasis or airspace disease. 2. Suggestion of possible gallbladder wall thickening. Correlate with right upper quadrant ultras ound if clinically indicated. 3. Heterogeneous appearance to the T7 vertebral body with mild central vertebral body height loss. Sclerotic foci in the L2 vertebral body. 4. Prominence of the upper abdominal aorta which measures up to 3 cm in diameter. 5. Possible cortical irregularity/discontinuity involving the upper sternal body. Correlate with any concern for acute fracture. 6. Left hip arthroplasty with related artifact limiting evaluation of the lower pelvis. 7. Additional non-emergent findings as above. 8. Evaluation limited without IV contrast. Electronically signed by: Josue Albert MD 04/10/2021 7:34 AM CDT Due to temporary technical issues with the PACS/Fluency reporting system, reports are being signed by the in house radiologist without review as a courtesy to ensure prompt reporting. The interpreting r adiologist is fully responsible for the content of the report.
[2021-04-10 11:32] VITALS: BP 117/64; TEMP 96.9
[2021-04-10 14:20] LABS: Protime INR 1.09
[2021-04-10 14:36] LABS: Thyroid Stimulating Hormone 0.644 uIU/mL (0.360-3.740); Troponin I < 0.02 ng/mL (0.0-0.045)
[2021-04-10 16:35] VITALS: O2SAT 98
[2021-04-10] MEDS ORDERED: ENSURE ENLIVE 237 ML CAN PO SCH (21:00)
--- NOTE | 2021-04-11 01:31 | P.SSS ---
Patient History Date of Service: 04/11/21 Reason for admission: Fall, head injury History of Present Illness: Patient is an 80-year-old female with a past medical history significant for Alzheimer's disease, GERD, UTI who presents with complaint of fall. Spouse reported that patient fell this morning and hit the left side of her head. Spouse reported that patient started having seizures which lasted for about 2 minutes. Spouse noted that patient was weak and unable to talk coherently. Patient currently confused and erratic in behavior. Spouse reported that this is not different from her baseline. No other signs or symptoms reported. Symptoms are aggravated or relieved by nothing. Patient was brought to the hospital for medical evaluation. Home medications list reviewed: Yes - Past Medical/Surgical History Diabetic: No -: alzheimers -: GERD -: UTI -: hysterectomy -: back surgery -: nodule removal from back - Family History Father -: Diabetes, Kidney disease Mother Notes: dementia Brother -: Diabetes, Cancer Notes: alzheimers Sister -: Stroke - Social History Smoking Status: Unknown if ever smoked Alcohol use: No CD- Drugs: No Caffeine use: Yes Place of Residence: Home <Deepak Villeda - Last Filed: 04/11/21 01:53> Date of Service: 04/11/21 <Teresita Mcmillan - Last Filed: 04/20/21 12:38> Allergies No Known Drug Allergies Allergy (Verified 07/26/20 21:26) Unknown No Known Allergies Allergy (Uncoded 12/25/17 19:12) Unknown Home Medications: Cefpodoxime Proxetil 100 mg PO BID #10 tablet 08/01/20 Ensure Enlive 237 ml PO BID #60 can 08/01/20 Review of Systems is unable to be obtained (Patient confused and erratic) <Deepak Villeda - Last Filed: 04/11/21 01:53> Physical Examination - Vital Signs Temperature: 96.9 F Blood Pressure: 117/64 Pulse: 65 Respirations: 18 Pulse Ox (%): 100 - Physical Exam General: Disheveled, Confused, Delirious HEENT: Atraumatic, PERRLA, Mucous membr. moist/pink, EOMI, Sclerae nonicteric Neck: Supple, 2+ carotid pulse no bruit, No LAD, Without JVD or thyroid abnormality Respiratory: Clear to auscultation bilaterally, Normal air movement Cardiovascular: Regular rate/rhythm, Normal S1 S2 Capillary refill: <2 Seconds Gastrointestinal: Normal bowel sounds, No tenderness Musculoskeletal: No tenderness Integumentary: No rashes Neurological: Normal affect, Abnormal gait (Bed bound ) Lymphatics: No axilla or inguinal lymphadenopathy External genitalia: Deferred Rectal: Deferred - Studies Laboratory Data (last 24 hrs) 04/10/21 07:30: Triglycerides 63, Cholesterol 195, HDL Cholesterol 58, Cholesterol/HDL Ratio 3.36 04/10/21 07:30: PT 12.3, INR 1.07 04/10/21 07:30: WBC 5.80, Hgb 10.9 L, Hct 32.0 L, Plt Count 274 04/10/21 07:30: Sodium 144, Potassium 4.1, BUN 18, Creatinine 0.50 L, Glucose 127 H, Magnesium 2.1, Total Bilirubin 0.3, AST 17, ALT 23, Alkaline Phosphatase 55 <Deepak Villeda - Last Filed: 04/11/21 01:53> Treatment Summary: Patient is alert and oriented x0. Patient confused, disoriented, erratic and unable to make decisions for herself. Patient was initially admitted for observation but spouse decided to take patient out of the hospital because he could not wait for a room in the medical surgical unit. Patient's spouse was advised against the risk of leaving AMA but spouse insisted on leaving AMA. - Disposition Discharge Date: 04/10/21 Consultations: None Diet: Regular Activity: Fall precautions Physician Review: Patient Assessed, Agree with Above Assessment and Plan Critical Care: No <Deepak Villeda - Last Filed: 04/11/21 01:53> <Teresita Mcmillan - Last Filed: 04/20/21 12:38> - Disposition Disposition: AMA-LEFT AGAINST MEDICAL ADVIC Condition: FAIR Date of Service: 04/10/21 Agree with plan of care as mentioned above. Patient left against medical advice. <Teresita Mcmillan - Last Filed: 04/20/21 12:38>
== END 2021-04-10 15:52 | disposition left against medical advice (07) | DRG 914 ==
LOC: ER 05:21 → ERHOLD 09:56
PROVIDERS: ADMIT Hospitalist; ATTEND Hospitalist
DX: S09.90XA Unspecified injury of head, initial encounter (principal); N39.0 Urinary tract infection, site not specified; I48.19 Other persistent atrial fibrillation; G30.9 Alzheimer's disease, unspecified; F02.80 Dementia in other diseases classified elsewhere, unspecified severity, without behavioral disturbance, psychotic disturbance, mood disturbance, and anxiety; K21.00 Gastro-esophageal reflux disease with esophagitis, without bleeding; W18.30XA Fall on same level, unspecified, initial encounter; Y92.009 Unspecified place in unspecified non-institutional (private) residence as the place of occurrence of the external cause; Z20.822 Contact with and (suspected) exposure to COVID-19; Z53.29 Procedure and treatment not carried out because of patient's decision for other reasons
CPT/HCPCS: 36415; 70450; 71045; 71250; 72125; 80048; 80061; 80076; 81003; 82947; 83036; 83735; 83880; 84439; 84443; 84484; 85025; 85610; 87077; 87086; 87088; 87186; 93005; 99284; J0696; J1953; J7030; J7040; U0003